=== PATIENT | female | born 1925 | race Asian ===

== ENCOUNTER 2016-08-11 10:03 | Inpatient (IN) | payer OTHER, MEDICAID ==
[2016-08-11] VITALS (14 sets, daily range): BP systolic 85–146; BP diastolic 46–101; PULSE 93–145; RESP 20–38; TEMP 94–98.1; O2SAT 80–97
[~2016-08-11] VITALS: Ht 152.4 cm; Wt 39.9 kg
[~2016-08-11 10:03] MED LIST: LIDOCAINE 1% 10 MG/ML, 20 ML MDV INJ ONE; MIDAZOLAM HCL 5 MG/5 ML VIAL IVP ONE; ROCURONIUM BROMIDE 10 MG/ML (ZEMURON) IV ONE
--- NOTE | 2016-08-11 10:03 | NUR ---
Patient to ER bed 2 to gown for evaluation. Side rails up. Report given to CALVIN ORTIZ .
[2016-08-11] MEDS ORDERED: NS 500 ML IV SCH (10:08)
--- NOTE | 2016-08-11 10:10 | NUR ---
PT BIB EMS FROM SNF C/O FEVER AND ALTERED.PT SAMI SPEAKING ONLY.PT AFEBRILE AT THIS TIME.
--- NOTE | 2016-08-11 10:30 | NUR ---
JOSE Brewster at bedside examining patient.
[2016-08-11 10:40] LABS: HEMATOCRIT 28.5 % (36-48); HEMOGLOBIN 9.4 g/dL (12.0-16.0); MEAN CORPUSCULAR HEMOGLOBIN 29 pg (27-31); MEAN CORPUSCULAR HGB CONC 33 % (32-36); MEAN CORPUSCULAR VOLUME 89 fL (79.0-98.0); PLATELET COUNT (AUTO) 242 K/uL (130-430); RED BLOOD CELL COUNT(AUTO) 3.23 MIL/uL (4.2-6.2); WHITE BLOOD COUNT (AUTO) 6.1 K/uL (4.8-10.8)
[2016-08-11 10:49] LABS: PROTHROMBIN TIME 10.4 SECS (9.5-12.5)
[2016-08-11 11:01] LABS: ATYPICAL LYMPHOCYTES % 0 % (0-0); BAND % (MANUAL) 30 % (0-6); BASOPHILS % (MANUAL) 0 % (0-2); EOSINOPHILS % (MANUAL) 0 % (0-7); LYMPHOCYTES % (MANUAL) 10 % (20-46); MONOCYTES % (MANUAL) 2 % (0-11)
--- NOTE | 2016-08-11 11:11 | NUR ---
CRITICAL LAB RESULT OBTAINED TROPONIN 8.659 MD SAEZ MADE AWARE WELL CALVIN.
[2016-08-11 11:21] LABS: ANION GAP 14 (5-15); CALCIUM 8.5 mg/dL (8.4-11.0); CHLORIDE 105 mmol/L (98-107); CREATININE 2.17 mg/dL (0.55-1.30); GLUCOSE 221 mg/dL (70-99); SODIUM SERUM 141 mmol/L (136-145); UREA NITROGEN, BLOOD 63 mg/dL (8-21)
--- NOTE | 2016-08-11 11:24 | NUR ---
# 16 FR Brooke catheter with use of sterile technique. Immediate return of 10 cc TURBID urine noted. Bedside drainage bag placed below level of bladder. Urine sample collected and sent to lab. Pt tolerated procedure WELL. Patient arrived with brooke in place, changed due to standard of practice prior to admission. Patient unable to toilet self.
[2016-08-11 11:26] LABS: ALANINE AMINOTRANSFERASE 49 U/L (12-78); ALBUMIN 2.5 g/dL (3.4-4.8); ASPARTATE AMINOTRANSFERASE 139 U/L (10-37); TOTAL BILIRUBIN 0.7 mg/dL (0.0-1.0); TOTAL PROTEIN, SERUM 8.1 g/dL (6.4-8.3)
[2016-08-11 11:28] LABS: BILIRUBIN,URINE NEGATIVE (NEGATIVE); BLOOD, URINE 3+ (NEGATIVE); CLARITY/URINE CLOUDY (CLEAR); COLOR,URINE YELLOW (YELLOW); GLUCOSE,URINE NEGATIVE (NEGATIVE); KETONES,URINE NEGATIVE (NEGATIVE); LEUKOCYTE ESTERASE ,URINE TRACE (NEGATIVE); NITRITE, URINE NEGATIVE (NEGATIVE); PROTEIN URINE 1+ (NEGATIVE); UROBILINOGEN,URINE 0.2 (0.2-1.0)
[2016-08-11] MEDS ORDERED: ASPIRIN 300 MG/SUPP.RECT SUPP RC ONE (11:30)
[2016-08-11 11:38] LABS: WBC,URINE 0-3 /HPF (0-3)
[2016-08-11 11:39] LABS: BACTERIA,URINE MODERATE /HPF (None Seen); YEAST,URINE Moderate /HPF (None Seen)
[2016-08-11] MEDS ORDERED: cefTRIAXone 1 GM in D5W 50 ML IV ONE (11:45)
[2016-08-11] MEDS ORDERED: AZITHROMYCIN 500 MG in NS 250 ML IV ONE (11:45)
[2016-08-11] MEDS ORDERED: NS 500 ML IV ONE (11:45)
--- NOTE | 2016-08-11 12:00 | NUR ---
PT MEDICATED TOLERATED WELL.
--- NOTE | 2016-08-11 12:10 | NUR ---
PT PLACED ON FARRAH HUGGER RECTAL TEMP 95.1.
[2016-08-11] MEDS ORDERED: AZITHROMYCIN 500 MG/VIAL (ZITHROMAX) IV ONE ×2 (12:23→12:44)
[2016-08-11] MEDS ORDERED: cefTRIAXone 1 GM VIAL ONE (12:27)
--- NOTE | 2016-08-11 12:30 | NUR ---
PT HYPOTENSIVE 86/50. CONTINUING MONITOR. AWARE.
--- NOTE | 2016-08-11 12:50 | NUR ---
REPEAT TEMP 96.5 RECTAL.
--- NOTE | 2016-08-11 13:30 | NUR ---
Admission Assessment Received pt via gurney from ER. Pt is awake, confused, agitated, speaks Nepalese, unable to verbalize needs, moaning. Pt is on bilateral soft wrist restraints for pulling at oxygen mask and IV lines, no skin breakdown noted, pulses present bilaterally. Respirations are even and rapid as pt is agitated and kicking. AROM on all extremities. Pt is on 7L O2 via simple mask. Vitals: T 94, HR 95, BP 126/101, O2 87%, R 27. Placed pt on bear hugger, but pt keeps kicking off blankets. Skin warm and dry, pt has bony prominences. Sacrum/coccyx noted with some redness, photograph taken and placed in chart, applied foam dressing and repositioned with pillow. IVSL 20G JULIA intact, patent. IVSL 20G LAC intact, patent. Logan catheter in place draining georgiana urine. Heart sounds regular, SR on monitor. Lung sounds diminished d/t pt moaning and unable to follow commands. Bowel sounds present x4 quads. Abdomen soft and nondistended. Peripheral pulses palpable. Reposition pt on pillow, relieve pressure on sacrum/coccyx. Heels elevated with pillow. Warming measures in place. Will continue to monitor.
--- NOTE | 2016-08-11 13:30 | NUR ---
Administered CHG bath and photograph sacrum.
--- NOTE | 2016-08-11 13:45 | NUR ---
Patient Update Pt's granddaughter, Di Coy, at bedside with pt's brother. Per Di, pt "had a fall within the past year" and "has history of hip replacement." When asked about other hx, Di states, "I don't know anything other than she has dementia and alzheimer's. She is up-to-date with vaccinations." Educated pt and family members regarding the need to use restraints, family members expressed understanding for her "to get necessary treatment and get better." Dr. Preston in to see pt and talking with family. Will continue with plan of care.
--- NOTE | 2016-08-11 14:00 | NUR ---
Placed pt in isolation with droplet precautions.
[2016-08-11] MEDS ORDERED: D5NS 1,000 ML IV SCH (14:30)
[2016-08-11] MEDS ORDERED: IPRATROPIUM BROM 0.5 MG/2.5 ML VIAL.NEB (ATROVENT) INH PRN (14:30)
[2016-08-11] MEDS ORDERED: ALBUTEROL SULFATE 0.083% 2.5 MG/3 ML VIAL.NEB INH PRN (14:30)
[2016-08-11] MEDS ORDERED: IPRATROPIUM BROM 0.5 MG/2.5 ML VIAL.NEB (ATROVENT) INH SCH (15:00)
[2016-08-11] MEDS ORDERED: ALBUTEROL SULFATE 0.083% 2.5 MG/3 ML VIAL.NEB INH SCH (15:00)
[2016-08-11] MEDS ORDERED: HYDROCORTISONE SOD SUCC 100 MG/2 ML VIAL IVP ONE (15:15)
[2016-08-11 15:34] LABS: BLOOD GAS PH 7.403 (7.350-7.450)
[2016-08-11 15:35] LABS: ABG TOTAL HEMOGLOBIN 10.1 G/dL (12.0-18.0); BLOOD GAS COHb% 0.1 % (0.5-1.5); BLOOD GAS HHB 13.1 % (0.0-6.0); BLOOD O2Hb% 86.4 % (94.0-97.0)
--- NOTE | 2016-08-11 16:00 | NUR ---
Patient Update Repositioned pt and perform oral suctioning. Pt is resistive to care and continues to kick legs, move arms, grab, and pinch healthcare providers. No injuries noted from bilateral wrist restraints. Pt removed blankets. Temperature improve to 97.4 from 94. Reoriented pt. Bed locked in lowest position. Will continue to monitor.
--- NOTE | 2016-08-11 16:10 | NUR ---
Wound Evaluation: Late note for 08/11/16 secondary to patient care. Wound Consult ordered for low Patrice score. Patient evaluated for a low Patrice score of 13. Patient was arousable, agitated, non-verbal, non-responsive to verbal commands, and received in an ICU [facility] Bed. Patient needs to be turned in bed. 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 Recommend reposition patient side to side only every two hours with pillow support. Elevate, off-load, and float bilateral heels with pillows. Offload pressure areas with pillows for pressure re-distribution. Perform skin care and monitor skin integrity q shift. Use moisture barrier cream on moisture susceptible areas qid and prn for soiling. Place patient on a low air-loss mattress. Will continue to follow as a Patrice. For (bony) Coccygeal area, recommend: Cleanse site with normal saline. Pat dry. Put moisture barrier cream onto site. Cover with Sacral foam dressing. Perform site care daily, and as needed for dressing soiling or dislodgment.
--- NOTE | 2016-08-11 17:00 | NUR ---
Dr. Castillo in to see pt. Will continue with plan of care.
[2016-08-11] MEDS: PIPERACILLIN/TAZO 3.375/DEX-IS 50 ML IV SCH ×2 (17:07→17:25)
[2016-08-11] MEDS: D5/0.45 NS 1,000 ML IV SCH ×2 (17:25→19:54)
[2016-08-11] MEDS ORDERED: HYDROCORTISONE SOD SUCC 100 MG/2 ML VIAL IVP SCH (18:00)
--- NOTE | 2016-08-11 18:00 | NUR ---
No change in pt's mental status. Heart rate and rhythm gradually increase to tachycardia.
--- NOTE | 2016-08-11 18:30 | NUR ---
Dr. Healy in to see pt.
--- NOTE | 2016-08-11 19:30 | NUR ---
Endorsement Endorsed plan of care to My RN via SBAR method. Belongings list complete. Assessments done.
--- NOTE | 2016-08-11 19:40 | NUR ---
PM ASSESSMENT PT IN BED, OPEN EYES, RESTLESS. PT ON SIMPLE MASK 7 L O2. O2 SAT 86%. RR 24. SINUS TACHYCARDIA ON AUTOMATIC COIN MACHINE MECHANIC. PERIPHERAL IV 20G ON LEFT AC AND PERIPHERAL IV 20 ON RIGHT UPPER ARM DRESSING CLEAN DRY AND INTACT. NO SIGNS OF INFECTION AND INFILTRATION. D5/0.45 NS INFUSING @ 40CC/HR. AMES CATHETER IN PLACE INTACT. PT ON BILATERAL SOFT WRIST RESTRAINTS. GOOD SKIN AND CIRCULATION NOTED ON ALL EXTREMITIES. CALL LIGHT WITHIN REACH . BED AT LOWEST POSITION. CONTINUE TO MONITOR.
[2016-08-11] MEDS: ALBUTEROL SULFATE 0.083% 2.5 MG/3 ML VIAL.NEB INH SCH (19:48)
[2016-08-11] MEDS: IPRATROPIUM BROM 0.5 MG/2.5 ML VIAL.NEB (ATROVENT) INH SCH (19:48)
[2016-08-11] MEDS ORDERED: SUCCINYLCHOLINE CHLORIDE 20 MG/ML(QUELICIN) ONE (20:00)
[2016-08-11] MEDS ORDERED: ETOMIDATE 20 MG/ 10 ML VIAL (AMIDATE) ONE (20:00)
--- NOTE | 2016-08-11 20:00 | NUR ---
GAVE PT CHG BATH. PERINEAL CARE AND SKIN CARE DONE. LINEN CHANGED.
--- NOTE | 2016-08-11 20:30 | NUR ---
RESPIRATORY SETTING RESPIRATORY THERAPIST AT PT BEDSIDE TO CHANGE SIMPLE MASK 7 L O2 TO VENTI MASK 50%
[2016-08-11] MEDS: CARVEDILOL 3.125 MG TABLET (COREG) PO SCH (21:00)
[2016-08-11] MEDS: HALOPERIDOL LACTATE 5 MG/ML VIAL IVP PRN (21:12)
--- NOTE | 2016-08-11 21:50 | NUR ---
RESPIRATORY SETTING RESPIRATORY THERAPIST AT PT'S BEDSIDE TO CHANGE TO NON-REBREATHER MASK 100%
[2016-08-11] MEDS ORDERED: METOPROLOL TARTRATE 5 MG/5 ML VIAL ONE (21:53)
[2016-08-11] MEDS ORDERED: METOPROLOL TARTRATE 5 MG/5 ML VIAL IVP ONE (22:00)
[2016-08-11] MEDS: HYDROCORTISONE SOD SUCC 100 MG/2 ML VIAL IVP SCH (22:04)
--- NOTE | 2016-08-11 23:00 | NUR ---
ABG RESPIRATORY THERAPIST AT PT'S BEDSIDE TO DRAW ABG
--- NOTE | 2016-08-11 23:25 | NUR ---
ABG RESULTS CHARGE NURSECARLYLE CALLS DR PEREZ REGARDING PT'S ABG RESULTS AND ELEVATED HR. DR PEREZ ORDERS TO INTUBATE THE PATIENT
--- NOTE | 2016-08-11 23:39 | NUR ---
INTUBATION DR YOST CAME TO INTUBATE THE PT. 20MG ETOMIDATE AND 100MG SUCCINYLCHOLINE IVP GIVEN. INTUBATED WITH ETT # 7, CO2 DETECTOR COLOR CHANGE IMMEDIATELY. ETT AT LIPLINE 19 PLACED ON THE VENT. VENT SETTING AC 16 VT 400 FIO2 100% PEEP 5. PT O2 SAT 100%. PT'S VITAL SIGNS STABLE. ABG WILL BE DONE IN HALF HOUR
--- NOTE | 2016-08-11 23:46 | NUR ---
PORTABLE CHEST X-RAY TAKEN BY ORAL COMMUNICATION INSTRUCTOR. DR YOST STATES THAT ETT IS IN THE RIGHT POSITION
[2016-08-11 23:58] LABS: BLOOD GAS PH 7.335 (7.350-7.450)
[2016-08-11 23:59] LABS: ABG TOTAL HEMOGLOBIN 10.4 G/dL (12.0-18.0); BLOOD GAS BASE EXCESS -6.4 mmol/L (-3.0-3.0); BLOOD GAS HHB 7.9 % (0.0-6.0)
[2016-08-12] VITALS (39 sets, daily range): BP systolic 70–141; BP diastolic 35–89; PULSE 91–150; RESP 17–36; TEMP 97.4–100.4; O2SAT 91–100; Ht 152.4 cm; Wt 39.9 kg
[2016-08-12] MEDS: PIPERACILLIN/TAZO 3.375/DEX-IS 50 ML IV SCH ×4 (00:28→18:15)
[2016-08-12] MEDS: ALBUTEROL SULFATE 0.083% 2.5 MG/3 ML VIAL.NEB INH SCH ×4 (00:36→19:38)
[2016-08-12] MEDS: IPRATROPIUM BROM 0.5 MG/2.5 ML VIAL.NEB (ATROVENT) INH SCH ×4 (00:36→19:38)
--- NOTE | 2016-08-12 00:40 | NUR ---
FIP2 TITRATION RESPIRATORY THERAPIST TITRATES FIO2 DOWN TO 80% Addendum: 08/12/16 at 0044 by Valorie Landaverde RN FIO2 TITRATION RESPIRATORY THERAPIST TITRATES FIO2 DOWN TO 80%. PT'S O2 SAT 100%
[2016-08-12] MEDS: LORazepam 2 MG/ML VIAL IVP PRN ×4 (01:01→16:39)
[2016-08-12] MEDS: MORPHINE 2 MG/ML INJ. SYRINGE IVP PRN (01:06)
[2016-08-12 01:08] LABS: BLOOD GAS PH 7.353 (7.350-7.450)
[2016-08-12 01:09] LABS: ABG TOTAL HEMOGLOBIN 9.9 G/dL (12.0-18.0); BLOOD GAS BASE EXCESS -6.5 mmol/L (-3.0-3.0); BLOOD GAS COHb% 0.3 % (0.5-1.5); BLOOD O2Hb% 97.5 % (94.0-97.0)
--- NOTE | 2016-08-12 05:30 | NUR ---
LOW URINE OUTPUT CALLED DR PEREZ REGARDING PT'S LOW URINE OUTPUT. NEW ORDERS RECEIVED
[2016-08-12] MEDS: D5/0.45 NS 1,000 ML IV SCH ×2 (05:45→16:39)
[2016-08-12] MEDS ORDERED: NS 250 ML IV ONE ×3 (05:45→15:30)
[2016-08-12 06:37] LABS: BASOPHILS % (AUTO) 0.1 % (0.0-2.0); HEMATOCRIT 27.5 % (36-48); HEMOGLOBIN 9.1 g/dL (12.0-16.0); LYMPHOCYTES # (AUTO) 0.2 K/uL (1.0-5.5); LYMPHOCYTES % (AUTO) 1.4 % (20.5-51.5); MEAN CORPUSCULAR HEMOGLOBIN 29 pg (27-31); MEAN CORPUSCULAR HGB CONC 33 % (32-36); MEAN CORPUSCULAR VOLUME 89 fL (79.0-98.0); MONOCYTES # (AUTO) 0.2 K/uL (0.0-1.0); MONOCYTES % (AUTO) 1.5 % (1.7-9.3); PLATELET COUNT (AUTO) 222 K/uL (130-430); RED CELL DISTRIBUTION WIDTH 13.9 % (9.0-15.0)
[2016-08-12 07:02] LABS: WHITE BLOOD COUNT (AUTO) 11.4 K/uL (4.8-10.8)
[2016-08-12 07:22] LABS: ANION GAP 9 (5-15); CHLORIDE 107 mmol/L (98-107); POTASSIUM 3.7 mmol/L (3.5-5.1); SODIUM SERUM 139 mmol/L (136-145)
[2016-08-12 07:23] LABS: ALANINE AMINOTRANSFERASE 51 U/L (12-78); ASPARTATE AMINOTRANSFERASE 118 U/L (10-37); CREATININE 1.86 mg/dL (0.55-1.30); GLUCOSE 241 mg/dL (70-99); TOTAL BILIRUBIN 0.5 mg/dL (0.0-1.0); TOTAL PROTEIN, SERUM 7.1 g/dL (6.4-8.3); UREA NITROGEN, BLOOD 59 mg/dL (8-21)
[2016-08-12] MEDS: HYDROCORTISONE SOD SUCC 100 MG/2 ML VIAL IVP SCH ×3 (07:23→21:25)
[2016-08-12 07:26] LABS: THYROID STIMULATING HORMONE 1.52 uIu/mL (0.34-4.82)
[2016-08-12 07:39] LABS: CHOLESTEROL 132 mg/dL (<200); HDL CHOLESTEROL 33 mg/dL (>55); LDL CHOLESTEROL 59 mg/dL (<100); TRIGLYCERIDES 111 mg/dL (30-150)
--- NOTE | 2016-08-12 07:44 | NUR ---
gave shift report to oncoming nurse
--- NOTE | 2016-08-12 08:00 | NUR ---
Pt in ICU # 1 . Eyes closed, does not open on verbal at this time. Does not folllow caommands. Able to move all extremities. Very restess. Tries to swing legs over side. Repositioned. Pillow support used. Skin warm and dry, no edema. Cardiac monoitor shows ST, no ectopy. IV patent.in right upper arm. SL in left wrist area. Remains orally intubated. Tolerating vent settings well.Tachypneic at times. Lungs with ronchi throughout. Abdomen soft,flat.Hypoactive bowel sounds Logan catheter in place, draining small amt cloudy yellow urine.
--- NOTE | 2016-08-12 08:15 | NUR ---
Seen by Dr Preston
--- NOTE | 2016-08-12 08:15 | NUR ---
RT NOTE FIO2 DECREASED TO 50% PER ABG RESULT, RN INFORMED ABOUT CHANGES, NO RESP DISTRESS NTD
--- NOTE | 2016-08-12 08:20 | NUR ---
Medicated with Ativan 1 mg ivp for agitation,tachycardia and tachypnea.
[2016-08-12 08:27] LABS: BLOOD GAS PH 7.446 (7.350-7.450)
[2016-08-12 08:28] LABS: ABG TOTAL HEMOGLOBIN 8.3 G/dL (12.0-18.0); BLOOD GAS BASE EXCESS -2.8 mmol/L (-3.0-3.0); BLOOD GAS COHb% 0.3 % (0.5-1.5); BLOOD GAS HHB 1.3 % (0.0-6.0)
--- NOTE | 2016-08-12 08:38 | NUR ---
Nutrition Update Patrice Scale 15 noted. Pt admitted for septic shock. Diet: NPO BMI: 17.4 kg/m2 RD to follow per nutrition care standards.
--- NOTE | 2016-08-12 08:45 | NUR ---
Seen by Dr Castillo.
[2016-08-12] MEDS: ASPIRIN 81 MG TAB.CHEW PO SCH (09:00)
[2016-08-12] MEDS: CARVEDILOL 3.125 MG TABLET (COREG) PO SCH ×2 (09:00→21:00)
--- NOTE | 2016-08-12 09:00 | NUR ---
Fluid bolus NS 250ml given for low BP=70/35 HR 123 RR 25
--- NOTE | 2016-08-12 10:00 | NUR ---
Vital signs improved. Pt calmer at this moment. Repositioned
--- NOTE | 2016-08-12 11:15 | NUR ---
Talked to granddaughter Di Mcdonald [phone] on telephone. Condition update given and questions answered.
[2016-08-12] MEDS: ENOXAPARIN SODIUM 30 MG/0.3 ML SYRINGE SUBCUT SCH (11:50)
[2016-08-12] MEDS: PANTOPRAZOLE SODIUM 40 MG/VIAL (PROTONIX) IVP SCH (11:50)
--- NOTE | 2016-08-12 12:00 | NUR ---
Continues restless. Repositioned for comfort.
--- NOTE | 2016-08-12 13:15 | NUR ---
Continues very restless. Medicated with Ativan 1 mg IVP slowly.
--- NOTE | 2016-08-12 14:00 | NUR ---
Calms slightly post Ativan. Reoriented, repositioned for comfort.
[2016-08-12] MEDS: HALOPERIDOL LACTATE 5 MG/ML VIAL IVP PRN (14:25)
--- NOTE | 2016-08-12 14:25 | NUR ---
Medicated with Haldol, 0.5 mg IVP for agitation/restlessness.
--- NOTE | 2016-08-12 16:00 | NUR ---
Seen by Dr Healy
--- NOTE | 2016-08-12 16:30 | NUR ---
Repositioned,partial bath , linen change OGT inserted for PO med administration Continues restless most of the time
--- NOTE | 2016-08-12 16:40 | NUR ---
Medicated with Ativan i mg IVP for restlessness
--- NOTE | 2016-08-12 18:00 | NUR ---
Resting quietly, Basically no change since AM assessment. Cont with current level of care
--- NOTE | 2016-08-12 19:45 | NUR ---
PM ASSESS PT AWAKE, EYES OPEN, A/OX1. ST ON THE MONITOR. IV SITE ON LT WRIST 20G SL AND JULIA 20G, INTACT AND PATENT, INFUSING D5 1/2NS@75ML/HR. LUNG SOUNDS RHONCHI BILAT UPPER LOBES AND DIMINISHED BASES, INTUBATED , SETTINGS AC16/ TV400/ FIO2 50%/ PEEP5. NGT PLACEMENT CHECKED, 0ML RESIDUALS, CLAMPED. AMES CATHETER DRAINING TO GRAVITY W/ YELLOW CLOUDY URINE. CALL LIGHT W/IN REACH, SAFETY PRECAUTIONS IN PLACE, WILL CONTINUE TO MONITOR.
[2016-08-12] MEDS: LACTOBACILLUS RHAMNOSUS GG 1 CAP CAPSULE PO SCH (21:24)
[2016-08-12] MEDS: OSELTAMIVIR PHOSPHATE 75 MG CAPSULE PO SCH (21:24)
--- NOTE | 2016-08-12 21:29 | NUR ---
MED/ COREG DUE MED GIVEN, PT TOLERATING WELL. COREG HELD, LOW BP. CALL LIGHT W/IN REACH, SAFETY PRECAUTIONS IN PLACE, WILL CONTINUE TO MONITOR.
[2016-08-13] VITALS (36 sets, daily range): BP systolic 85–138; BP diastolic 42–77; PULSE 69–118; RESP 16–36; TEMP 97–97.9; O2SAT 94–100
[2016-08-13] MEDS: ALBUTEROL SULFATE 0.083% 2.5 MG/3 ML VIAL.NEB INH SCH ×4 (00:04→19:53)
[2016-08-13] MEDS: IPRATROPIUM BROM 0.5 MG/2.5 ML VIAL.NEB (ATROVENT) INH SCH ×4 (00:04→19:53)
[2016-08-13] MEDS: PIPERACILLIN/TAZO 3.375/DEX-IS 50 ML IV SCH ×5 (00:34→23:30)
--- NOTE | 2016-08-13 00:35 | NUR ---
ABX DUE ABX GIVEN, PT TOLERATING WELL. CALL LIGHT W/IN REACH, SAFETY PRECAUTIONS IN PLACE, WILL CONTINUE TO MONITOR.
[2016-08-13] MEDS: HYDROCORTISONE SOD SUCC 100 MG/2 ML VIAL IVP SCH ×3 (05:16→21:39)
--- NOTE | 2016-08-13 05:22 | NUR ---
ABX/ MED DUE ABX AND MED GIVEN, PT TOLERATING WELL. CALL LIGHT W/IN REACH, SAFETY PRECAUTIONS IN PLACE, WILL CONTINUE TO MONITOR.
[2016-08-13 06:43] LABS: BASOPHILS % (AUTO) 0.1 % (0.0-2.0); EOSINOPHILS % (AUTO) 0.1 % (0.0-4.0); HEMATOCRIT 23.2 % (36-48); HEMOGLOBIN 7.6 g/dL (12.0-16.0); LYMPHOCYTES # (AUTO) 0.2 K/uL (1.0-5.5); LYMPHOCYTES % (AUTO) 2.6 % (20.5-51.5); MEAN CORPUSCULAR HEMOGLOBIN 29 pg (27-31); MEAN CORPUSCULAR HGB CONC 33 % (32-36); MEAN CORPUSCULAR VOLUME 88 fL (79.0-98.0); MONOCYTES # (AUTO) 0.2 K/uL (0.0-1.0); MONOCYTES % (AUTO) 2.2 % (1.7-9.3); NEUTROPHILS # (AUTO) 8.6 K/uL (1.8-7.7); PLATELET COUNT (AUTO) 198 K/uL (130-430); RED BLOOD CELL COUNT(AUTO) 2.62 MIL/uL (4.2-6.2); RED CELL DISTRIBUTION WIDTH 14.2 % (9.0-15.0)
--- NOTE | 2016-08-13 07:25 | NUR ---
Pt very agitated, wriggling in bed with restraints on and RR 40/min. Sats 97%, HR 100. Medicated with haldol 0.5 mg IVP. Will monitor for effect.
--- NOTE | 2016-08-13 07:27 | NUR ---
CLOSING ALL NEEDS MET. ENDORSED CARE TO NURSE GUERA ORTIZ.
[2016-08-13] MEDS: HALOPERIDOL LACTATE 5 MG/ML VIAL IVP PRN (07:35)
--- NOTE | 2016-08-13 07:45 | NUR ---
Pt remains agitated with RR 30's. VSS. Medicated with Ativan IVP as ordered. Will monitor for effect.
[2016-08-13 07:48] LABS: BLOOD GAS PH 7.419 (7.350-7.450)
[2016-08-13 07:49] LABS: ABG TOTAL HEMOGLOBIN 7.5 G/dL (12.0-18.0); BLOOD GAS BASE EXCESS -6.1 mmol/L (-3.0-3.0); BLOOD GAS COHb% 0.3 % (0.5-1.5); BLOOD GAS HHB 3.2 % (0.0-6.0); BLOOD O2Hb% 95.7 % (94.0-97.0)
[2016-08-13 07:50] LABS: ANION GAP 11 (5-15); CALCIUM 7.6 mg/dL (8.4-11.0); CHLORIDE 108 mmol/L (98-107); CREATININE 1.79 mg/dL (0.55-1.30); GLUCOSE 264 mg/dL (70-99); SODIUM SERUM 141 mmol/L (136-145); UREA NITROGEN, BLOOD 53 mg/dL (8-21)
[2016-08-13] MEDS: LORazepam 2 MG/ML VIAL IVP PRN ×3 (07:51→19:07)
[2016-08-13 08:02] LABS: ALANINE AMINOTRANSFERASE 49 U/L (12-78); ALBUMIN 1.6 g/dL (3.4-4.8); ASPARTATE AMINOTRANSFERASE 98 U/L (10-37); TOTAL BILIRUBIN 0.4 mg/dL (0.0-1.0)
--- NOTE | 2016-08-13 08:21 | NUR ---
RT NOTE FIO2 DECREASED TO 40% PER TITRATING ORDER
[2016-08-13 08:35] LABS: POTASSIUM 2.8 mmol/L (3.5-5.1)
[2016-08-13] MEDS: PANTOPRAZOLE SODIUM 40 MG/VIAL (PROTONIX) IVP SCH (08:35)
[2016-08-13] MEDS: CARVEDILOL 3.125 MG TABLET (COREG) PO SCH ×2 (08:36→20:41)
[2016-08-13] MEDS: ASPIRIN 81 MG TAB.CHEW PO SCH (08:36)
[2016-08-13] MEDS: LACTOBACILLUS RHAMNOSUS GG 1 CAP CAPSULE PO SCH ×2 (08:37→20:40)
[2016-08-13] MEDS: OSELTAMIVIR PHOSPHATE 75 MG CAPSULE PO SCH ×2 (08:37→20:41)
[2016-08-13] MEDS: ENOXAPARIN SODIUM 30 MG/0.3 ML SYRINGE SUBCUT SCH (08:39)
[2016-08-13] MEDS: D5/0.45 NS 1,000 ML IV SCH ×2 (08:41→17:00)
[2016-08-13] MEDS ORDERED: POTASSIUM CHLORIDE 40 MEQ in NS 250 ML IV SCH (08:50)
[2016-08-13] MEDS ORDERED: FUROSEMIDE 20 MG/2 ML VIAL IVP ONE (09:45)
--- NOTE | 2016-08-13 09:50 | NUR ---
Dr. Healy in to see pt. Orders left.
[2016-08-13] MEDS: POTASSIUM CHLORIDE 20 MEQ TAB.PRT.SR PO SCH ×2 (12:36→20:40)
--- NOTE | 2016-08-13 14:05 | NUR ---
Wound Re-Evaluation: Wound Consult ordered for low Patrice score. Assessment provided by staff nurse. Patient re-evaluated for a low Patrice score of 13. Patient was arousable, non-verbal, non-responsive to verbal commands, and received in an ICU [facility] Bed. Patient needs to be turned in bed. Skin is poor; Sacral area has erythema from IAD; Inferior Coccygeal area has scar tissue with dark discoloration. Recommend reposition patient side to side only every two hours with pillow support. Elevate, off-load, and float bilateral heels with pillows. Offload pressure areas with pillows for pressure re-distribution. Perform skin care and monitor skin integrity q shift. Use moisture barrier cream on moisture susceptible areas qid and prn for soiling. Place patient on a low air-loss mattress. Will continue to follow as a Patrice. For (bony) Coccygeal area, recommend continue: Cleanse site with normal saline. Pat dry. Put moisture barrier cream onto site. Cover with Sacral foam dressing. Perform site care daily, and as needed for dressing soiling or dislodgment.
--- NOTE | 2016-08-13 14:35 | NUR ---
Poor urine output from brooke since lasix given earlier. Call out to Dr. Healy. Repositioned in bed with pillow support.
--- NOTE | 2016-08-13 14:48 | NUR ---
Spoke to Dr. Healy regarding low urine output. Orders left. NS bolus given.
[2016-08-13] MEDS ORDERED: NACL 0.9% 1,000 ML IV SCH (15:00)
[2016-08-13] MEDS ORDERED: NS 250 ML IV ONE (15:00)
--- NOTE | 2016-08-13 16:30 | NUR ---
Urine output improved with NS bolus. Urine clear yellow. Pt repositioned in bed. Extremities contracted but pt ablet o move arms. Mittens and restraints remain in use to prevent removing equipment. Will continue to monitor. Sedation helpful when pt agitated.
--- NOTE | 2016-08-13 19:30 | NUR ---
Report given to oncoming nurse.
--- NOTE | 2016-08-13 19:45 | NUR ---
PM ASSESS PT AWAKE, EYES OPEN, A/OX1. SR ON THE MONITOR. IV SITE ON RT WRIST 20G SL AND JULIA 20G, INTACT AND PATENT, INFUSING D5 1/2NS@75ML/HR. LUNG SOUNDS BILAT CRACKLES UPPER LOBES AND DIMINISHED BASES, INTUBATED , SETTINGS AC16/ TV400/ FIO2 50%/ PEEP5. OGT PLACEMENT CHECKED, 0ML RESIDUALS, CLAMPED. AMES CATHETER DRAINING TO GRAVITY W/ YELLOW CLOUDY URINE. CALL LIGHT W/IN REACH, SAFETY PRECAUTIONS IN PLACE, WILL CONTINUE TO MONITOR.
--- NOTE | 2016-08-13 20:43 | NUR ---
MED/ COREG DUE MED GIVEN, PT TOLERATING WELL. COREG HELD, LOW BP. CALL LIGHT W/IN REACH, SAFETY PRECAUTIONS IN PLACE, WILL CONTINUE TO MONITOR.
--- NOTE | 2016-08-13 21:40 | NUR ---
MED DUE MED GIVEN, PT TOLERATING WELL. CALL LIGHT W/IN REACH, SAFETY PRECAUTIONS IN PLACE, WILL CONTINUE TO MONITOR.
--- NOTE | 2016-08-13 21:57 | NUR ---
TF STARTED DIABETISOURCE AC@20ML/HR STARTED, PT TOLERATING WELL, WILL CONTINUE TO MONITOR.
--- NOTE | 2016-08-13 23:31 | NUR ---
ABX DUE ABX GIVEN, PT TOLERATING WELL. CALL LIGHT W/IN REACH, SAFETY PRECAUTIONS IN PLACE, WILL CONTINUE TO MONITOR.
[2016-08-14] VITALS (37 sets, daily range): BP systolic 90–170; BP diastolic 46–94; PULSE 78–122; RESP 13–41; TEMP 97.2–97.8; O2SAT 90–97
[2016-08-14] MEDS: ALBUTEROL SULFATE 0.083% 2.5 MG/3 ML VIAL.NEB INH SCH ×4 (01:12→20:08)
[2016-08-14] MEDS: IPRATROPIUM BROM 0.5 MG/2.5 ML VIAL.NEB (ATROVENT) INH SCH ×4 (01:13→20:08)
--- NOTE | 2016-08-14 05:00 | NUR ---
RT NOTES PT REMAIN ON VENT THROUGH OUT SHIFT WITH CURRENT SETTINGS CHARTED. PT MAYANK VENT WELL. MED NEB TX WAS GIVEN INLINE WITHOUT ADVERSE REACTION NOTED. VENT AND APNEA ALARMS SET AND FUNCTIONING. SXN PRN FOR SMALL AMOUNT OF THICK PALE YELLOW SECRETIONS. NO RESP DISTRESS NOTED. AMBU BAG IS AT BEDSIDE.
[2016-08-14] MEDS: PIPERACILLIN/TAZO 3.375/DEX-IS 50 ML IV SCH ×4 (05:23→23:41)
[2016-08-14] MEDS: HYDROCORTISONE SOD SUCC 100 MG/2 ML VIAL IVP SCH ×2 (05:24→20:08)
[2016-08-14] MEDS: D5/0.45 NS 1,000 ML IV SCH ×2 (05:24→20:08)
--- NOTE | 2016-08-14 05:25 | NUR ---
ABX/ MED DUE ABX AND MED GIVEN, PT TOLERATING WELL. CALL LIGHT W/IN REACH, SAFETY PRECAUTIONS IN PLACE, WILL CONTINUE TO MONITOR.
[2016-08-14 06:41] LABS: BASOPHILS % (AUTO) 0.1 % (0.0-2.0); EOSINOPHILS % (AUTO) 0.2 % (0.0-4.0); HEMATOCRIT 26.1 % (36-48); HEMOGLOBIN 8.6 g/dL (12.0-16.0); LYMPHOCYTES # (AUTO) 0.3 K/uL (1.0-5.5); LYMPHOCYTES % (AUTO) 3.8 % (20.5-51.5); MEAN CORPUSCULAR HEMOGLOBIN 29 pg (27-31); MEAN CORPUSCULAR HGB CONC 33 % (32-36); MEAN CORPUSCULAR VOLUME 88 fL (79.0-98.0); MONOCYTES # (AUTO) 0.2 K/uL (0.0-1.0); MONOCYTES % (AUTO) 2.7 % (1.7-9.3); NEUTROPHILS # (AUTO) 8.7 K/uL (1.8-7.7); NEUTROPHILS % (AUTO) 93.2 % (40.0-70.0); PLATELET COUNT (AUTO) 203 K/uL (130-430); RED BLOOD CELL COUNT(AUTO) 2.98 MIL/uL (4.2-6.2); RED CELL DISTRIBUTION WIDTH 14.6 % (9.0-15.0); WHITE BLOOD COUNT (AUTO) 9.2 K/uL (4.8-10.8)
[2016-08-14 07:18] LABS: ANION GAP 12 (5-15); CALCIUM 7.8 mg/dL (8.4-11.0); CHLORIDE 107 mmol/L (98-107); CREATININE 1.75 mg/dL (0.55-1.30); GLUCOSE 217 mg/dL (70-99); POTASSIUM 3.1 mmol/L (3.5-5.1); SODIUM SERUM 141 mmol/L (136-145); UREA NITROGEN, BLOOD 45 mg/dL (8-21)
[2016-08-14 07:31] LABS: ALANINE AMINOTRANSFERASE 41 U/L (12-78); ALBUMIN 1.5 g/dL (3.4-4.8); ASPARTATE AMINOTRANSFERASE 71 U/L (10-37); TOTAL BILIRUBIN 0.4 mg/dL (0.0-1.0); TOTAL PROTEIN, SERUM 6.1 g/dL (6.4-8.3)
--- NOTE | 2016-08-14 07:44 | NUR ---
CLOSING ALL NEEDS MET. ENDORSED CARE TO NURSE BRAD ORTIZ. Addendum: 08/14/16 at 6444 by Dora Porter RN CORRECTION: ENDORSED CARE TO NURSE HAILE ORTIZ.
--- NOTE | 2016-08-14 07:50 | NUR ---
DR CHÁVEZ IN THE ROOM. UPDATED OF STATUS AND LAB RESULTS. NEW ORDERS RECEIVE.
--- NOTE | 2016-08-14 08:00 | NUR ---
INITIAL SHIFT ASSESSMENT DONE (SEE ASSESSMENT PART). SLEEPING BUT EASILY AROUSABLE. DOES NOT FOLLOW COMMAND BUT EYES ARE TRACKING. NO SIGNS OF PAIN. ON VENTILATOR, TOLERATING CURRENT SETTINGS WELL. O2 SAT 97-98%. SR ON MONITOR. SBP IN 100'S-120'S. NO ECTOPY NOTED. HOB ELEVATED. ON TF, TOLERATING FAIRLY. RESIDUALS OF 50 ML. ON BILATERAL SOFT WRIST RESTRAINTS. UPDATED OF PLAN OF CARE. WILL CONTINUE TO MONITOR.
[2016-08-14 08:32] LABS: BLOOD GAS BASE EXCESS -4.8 mmol/L (-3.0-3.0); BLOOD GAS PH 7.467 (7.350-7.450)
[2016-08-14 08:33] LABS: ABG TOTAL HEMOGLOBIN 9.1 G/dL (12.0-18.0); BLOOD GAS COHb% 0.1 % (0.5-1.5); BLOOD GAS HHB 1.6 % (0.0-6.0); BLOOD O2Hb% 97.6 % (94.0-97.0)
--- NOTE | 2016-08-14 08:55 | NUR ---
DR PEREZ IN THE ROOM. UPDATED OF STATUS. NEW ORDERS RECEIVE.
[2016-08-14] MEDS: LACTOBACILLUS RHAMNOSUS GG 1 CAP CAPSULE PO SCH ×2 (09:23→20:08)
[2016-08-14] MEDS: ENOXAPARIN SODIUM 30 MG/0.3 ML SYRINGE SUBCUT SCH (09:23)
[2016-08-14] MEDS: OSELTAMIVIR PHOSPHATE 75 MG CAPSULE PO SCH ×2 (09:23→20:08)
[2016-08-14] MEDS: PANTOPRAZOLE SODIUM 40 MG/VIAL (PROTONIX) IVP SCH (09:23)
[2016-08-14] MEDS: POTASSIUM CHLORIDE 20 MEQ TAB.PRT.SR PO SCH ×2 (09:23→20:08)
[2016-08-14] MEDS: ASPIRIN 81 MG TAB.CHEW PO SCH (09:23)
[2016-08-14] MEDS: CARVEDILOL 3.125 MG TABLET (COREG) PO SCH ×2 (09:24→22:05)
--- NOTE | 2016-08-14 09:24 | NUR ---
RT NOTES FIO2 TO 40% PER DR PEREZ ORDER
--- NOTE | 2016-08-14 10:00 | NUR ---
RESTING IN BED. NO SIGNS OF PAIN. TOLERATING VENTILATOR WELL. O2 SAT 94-96%. ST ON MONITOR. SBP IN 110'S-140'S. NO ECTOPY NOTED. HOB ELEVATED. WILL CONTINUE TO MONITOR.
--- NOTE | 2016-08-14 12:00 | NUR ---
REASSESSMENT DONE. NEURO STATUS UNCHANGED. NO SIGNS OF PAIN. TOLERATING CURRENT VENTILATOR SETTINGS WELL. O2 SAT 95-97%. SR ON MONITOR. SBP IN 110'S-120'S. NO ECTOPY NOTED. TOLERATING TUBE FEEDING WELL. NO RESIDUALS NOTED. TF INCREASE TO 30 ML/HR. HOB ELEVATED. UPDATED OF PLAN OF CARE. WILL CONTINUE TO MONITOR.
--- NOTE | 2016-08-14 12:22 | NUR ---
Nutrition F/U Admitting Diagnosis Septic shock, acute AK, respiratory failure, aspiration pneumonia, ARF Past Medical History Alzheimer's dementia, HTN per MD notes Pertinent Medications protonix IV, morphine, lopressor, solu-cortef, piperacillin/tazobactam IV, D5%/NaCl IV, k-dur, culturelle Current Diet Order Diabetisource AC at 20 ml/hr, titrate to 40 ml/hr, Free Water Flush: 150 ML via OGT x1 day Height (Feet) 5 feet Height (Inches) 0.00 inches Weight (Pounds) 88 pounds (admission) Bedscale wt: 83 lb, 38 kg (08/12/16); 90 lb, 41 kg (08/14/16) -- unsure of reliability Weight (Calculated Kilograms) 39.638356 kilograms Patient Weight 39.916 kg Body Mass Index 17.18 kg/m2 (underweight, at risk for malnutrition) [place]/Adjusted Body Weight IBW: 100 lb, 46 kg. 87% of IBW Estimated Needs 8221-6779 kcal/day (30-35 kcal/kg IBW for sepsis, wt gain promotion) Grams of Protein per Day 69-92 gm/day (1.5-2 gm/kg IBW for sepsis, wt gain promotion) Fluid Intake Goal 1.4-1.6 L/day (1 ml/kcal/day for geriatric maintenance) Pertinent Labs BG 217 H, BUN 45 H, CRE 1.75 H, ALB 1.5 L, Troponin 3.628 H, WBC 9.2 WNL (improved), ALB 1.5 L, Hgb 8.6 L, Hct 26.1 L 08/13/16: BNP 771 H 08/12/16: HDL cholesterol 33 L 08/11/16: Lactic acid 2.6 H Other Subjective Data Nutrition Consult (Low Patrice Score) 08/13/16 1733 Pt seen +intubated, +vent, w/ no nutrition support infusing, so far, 268 ml infused, providing 322 kcal. Physical assessment: pt is confused/disoriented, and continues to appear to have sunken temporal regions and thin upper and lower extremities w/ possible muscle breakdown Home diet/supplement: unknown diet, Ensure 4 oz by mouth w/ meals; pt is from [facility] Food allergies: unknown GI integrity: last BM x3 08/12/16; per RN, pt had BM x1 during shift production associate last night and 50 ml residual this morning Skin integrity: Patrice scale of 15; per Product Craftsman note 08/13/16: skin is poor; Skin is poor; Sacral area has erythema from IAD; Inferior Coccygeal area has scar tissue with dark discoloration. Plans/procedures: per RN, titrating pt's oxygen and TF regimen Current diet is appropriate and adequate. Pt is not appropriate for nutrition education. Problem, Etiology, Signs/Symptoms Increased nutritional needs related to metabolic demands and risk for malnutrition as evidenced by elevated WBC and lactic acid draw, BMI: 17.4 kg/m2, and 87% of IBW. *WBC now WNL Expected Outcomes or Goals - Monitor provision of nutrition support, appetite, and PO intakes w/ goal of pt meeting at least 50% of estimated nutritional needs, labs trending WNL, normal GI function, and skin integrity/weight maintenance Dietitian Recommendations * Recommend continuing Diabetisource AC at 20 ml/hr, titrate to 40 ml/hr, Free Water Flush: 150 ML via OGT per MD Provides: 1152 kcal/day, 58 gm protein/day, and 935 ml free water/day Meets: 84% of lower end of estimated caloric and protein needs Follow Up Moderate Risk: F/U in 3-5 days
--- NOTE | 2016-08-14 13:30 | NUR ---
FAMILY MEMBERS ARE IN THE ROOM. UPDATED OF STATUS AND PLAN OF CARE.
--- NOTE | 2016-08-14 14:00 | NUR ---
RESTING IN BED NO SIGNS OF PAIN. TOLERATING VENTILATOR WELL. O2 SAT 93-96%. SR ON MONITOR. SBP IN 120'S-150'S. NO ECTOPY NOTED. HOB ELEVATED. WILL CONTINUE TO MONITOR.
--- NOTE | 2016-08-14 16:00 | NUR ---
REASSESSMENT DONE. NEURO STATUS STILL THE SAME. NO SIGNS OF PAIN. TOLERATING CURRENT VENTILATOR SETTINGS WELL. O2 SAT 91-96%. SR ON MONITOR. SBP IN 120'S-150. NO ECTOPY NOTED. TOLERATING TUBE FEEDING WELL. RESIDUALS OF 20 ML ONLY. TF INCREASE TO 40 ML/HR. HOB ELEVATED. UPDATED OF PLAN OF CARE. WILL CONTINUE TO MONITOR.
--- NOTE | 2016-08-14 17:10 | NUR ---
HAS BM AGAIN AT THIS TIME, LARGE AMOUNT, PASTY TO LOOSE, AND DARK GREENISH BROWN COLOR. GIVEN BATH AND LINENS ARE CHANGE. TOLERATED THE PROCEDURE WELL.
--- NOTE | 2016-08-14 18:00 | NUR ---
RESTING IN BED. NO SIGNS OF PAIN. OCCASIONAL AGITATION NOTED. TOLERATING VENTILATOR WELL. O2 SAT 94-96%. SR ON MONITOR. SBP IN 90-150'S. NO ECTOPY NOTED. HOB ELEVATED. WILL CONTINUE TO MONITOR.
--- NOTE | 2016-08-14 19:02 | NUR ---
REPORT GIVEN TO INCOMING BUSINESS CONTINUITY STRATEGY DIRECTOR RN, DIANA DAMON.
--- NOTE | 2016-08-14 19:10 | NUR ---
REPORT GIVEN TO INCOMING ENGINE REPAIRER SERVICE RN, DIANA MOSELEY.
--- NOTE | 2016-08-14 19:20 | NUR ---
PM NOTES PT RESTING WITH EYES CLOSED, NOTED OPENS EYES TO VERBAL STIMULI. INTUBATED WITH VENT SETTINGS ASSESSED. ET TUBE RESTING ON RIGHT SIDE OF MOUTH. OGT FEEDING DIABETISOURCE AT 40ML/HR WITH 70ML RESIDUAL NOTED. IV LEFT UPPER ARM 20G FLUSHING WELL AND RUNNING D5.45NS AT 75ML/HR. NOTED IV RIGHT WRIST 20G FLUSHING WELL AND SALINE LOCKED. BILATERAL MITTEN RESTRAINTS, NOTED BRUISE TO LEFT WRIST AREA. AMES CATHETER PRESENT DRAINING CLEAR YELLOW URINE TO GRAVITY. ALL NEEDS BEING MET. DROPLET ISOLATION.
[2016-08-14] MEDS: LORazepam 2 MG/ML VIAL IVP PRN (21:34)
--- NOTE | 2016-08-14 21:34 | NUR ---
AGITATED ATIVAN 1MG IVP ADMINISTERED FOR AGITATION. WILL CONTINUE TO MONITOR. BED IN LOW POSITION, CALL LIGHT WITHIN REACH.
--- NOTE | 2016-08-14 22:39 | NUR ---
BOWEL MOVEMENT SMALL SOFT BROWN BOWEL MOVEMENT.
[2016-08-15] VITALS (35 sets, daily range): BP systolic 89–157; BP diastolic 45–98; PULSE 81–108; RESP 12–39; TEMP 97.1–98.2; O2SAT 89–100
[2016-08-15] MEDS: ALBUTEROL SULFATE 0.083% 2.5 MG/3 ML VIAL.NEB INH SCH ×4 (01:57→19:55)
[2016-08-15] MEDS: IPRATROPIUM BROM 0.5 MG/2.5 ML VIAL.NEB (ATROVENT) INH SCH ×4 (01:57→19:55)
[2016-08-15] MEDS: LORazepam 2 MG/ML VIAL IVP PRN ×5 (02:02→17:28)
--- NOTE | 2016-08-15 02:20 | NUR ---
CHG BATH GIVEN/BOWEL MOVEMENT
[2016-08-15] MEDS: PIPERACILLIN/TAZO 3.375/DEX-IS 50 ML IV SCH ×4 (05:07→23:25)
[2016-08-15 06:30] LABS: ANION GAP 9 (5-15); CALCIUM 7.9 mg/dL (8.4-11.0); CHLORIDE 106 mmol/L (98-107); CREATININE 1.47 mg/dL (0.55-1.30); GLUCOSE 242 mg/dL (70-99); POTASSIUM 3.5 mmol/L (3.5-5.1); SODIUM SERUM 137 mmol/L (136-145); UREA NITROGEN, BLOOD 42 mg/dL (8-21)
[2016-08-15 06:38] LABS: EOSINOPHILS # (AUTO) 0.1 K/uL (0.0-0.4); EOSINOPHILS % (AUTO) 0.5 % (0.0-4.0); HEMOGLOBIN 9.2 g/dL (12.0-16.0); LYMPHOCYTES # (AUTO) 0.3 K/uL (1.0-5.5); LYMPHOCYTES % (AUTO) 3.2 % (20.5-51.5); MEAN CORPUSCULAR HEMOGLOBIN 30 pg (27-31); MEAN CORPUSCULAR HGB CONC 34 % (32-36); MEAN CORPUSCULAR VOLUME 87 fL (79.0-98.0); MONOCYTES # (AUTO) 0.2 K/uL (0.0-1.0); MONOCYTES % (AUTO) 1.4 % (1.7-9.3); NEUTROPHILS # (AUTO) 10.2 K/uL (1.8-7.7); NEUTROPHILS % (AUTO) 94.9 % (40.0-70.0); PLATELET COUNT (AUTO) 235 K/uL (130-430); RED CELL DISTRIBUTION WIDTH 14.1 % (9.0-15.0); WHITE BLOOD COUNT (AUTO) 10.8 K/uL (4.8-10.8)
--- NOTE | 2016-08-15 06:50 | NUR ---
AIR MATTRESS ORDERED/C.DIFF SAMPLE AIR MATTRESS ORDERED WITH PRESCHOOL SUBSTITUTE TEACHER. NOTED PT HAD LOOSE STOOL, COLLECTED SAMPLE FOR POSSIBLE C.DIFF PER PROTOCOL. ALL NEEDS MET THROUGHOUT SHIFT. WILL ENDORSE CARE TO ONCOMING NURSE.
--- NOTE | 2016-08-15 07:30 | NUR ---
Nursing Pt awake with episode of restlessness- trying to pull out tubes and lethargy. No SOB on current vent settings, orally intubated. Logan catheter draining yellow urine with sediments. Safe environment provided. Will continue to monitor.
[2016-08-15 08:16] LABS: ABG TOTAL HEMOGLOBIN 11.1 G/dL (12.0-18.0); BLOOD GAS BASE EXCESS -3.6 mmol/L (-3.0-3.0); BLOOD GAS COHb% 0.3 % (0.5-1.5); BLOOD GAS HHB 6.6 % (0.0-6.0); BLOOD O2Hb% 92.8 % (94.0-97.0)
[2016-08-15] MEDS ORDERED: FUROSEMIDE 20 MG/2 ML VIAL IVP ONE (09:45)
[2016-08-15] MEDS: ASPIRIN 81 MG TAB.CHEW PO SCH (09:50)
[2016-08-15] MEDS: CARVEDILOL 3.125 MG TABLET (COREG) PO SCH ×3 (09:51→23:04)
[2016-08-15] MEDS: LACTOBACILLUS RHAMNOSUS GG 1 CAP CAPSULE PO SCH ×2 (09:51→20:55)
[2016-08-15] MEDS: POTASSIUM CHLORIDE 20 MEQ TAB.PRT.SR PO SCH ×2 (09:51→20:55)
[2016-08-15] MEDS: OSELTAMIVIR PHOSPHATE 75 MG CAPSULE PO SCH ×2 (09:51→20:55)
[2016-08-15] MEDS: ENOXAPARIN SODIUM 30 MG/0.3 ML SYRINGE SUBCUT SCH (09:52)
[2016-08-15] MEDS: HYDROCORTISONE SOD SUCC 100 MG/2 ML VIAL IVP SCH ×2 (09:52→20:55)
--- NOTE | 2016-08-15 10:00 | NUR ---
Skin care Observed pt with blanchable redness to sacrum and spine. Foam dressing applied to sacrum, as well as zguard. Zguard applied to spine. Pt is turned left - right only. Will continue to monitor.
[2016-08-15] MEDS: PANTOPRAZOLE SODIUM 40 MG/VIAL (PROTONIX) IVP SCH (10:11)
[2016-08-15] MEDS: D5/0.45 NS 1,000 ML IV SCH (10:11)
[2016-08-15] MEDS: MORPHINE 2 MG/ML INJ. SYRINGE IVP PRN (11:57)
--- NOTE | 2016-08-15 13:40 | NUR ---
Wound Re-Evaluation: Wound Consult ordered for low Patrice score. Assessment provided by staff nurse. Patient re-evaluated for a low Patrice score of 13. Patient was arousable, non-verbal, non-responsive to verbal commands, and received in an ICU [facility] Bed. Patient needs to be turned in bed. Skin is poor; Sacral area has erythema from IAD; Inferior Coccygeal area has scar tissue with dark discoloration. Recommend reposition patient side to side only every two hours with pillow support. Elevate, off-load, and float bilateral heels with pillows. Offload pressure areas with pillows for pressure re-distribution. Perform skin care and monitor skin integrity q shift. Use moisture barrier cream on moisture susceptible areas qid and prn for soiling. Place patient on a low air-loss mattress (which was ordered). Will continue to follow as a Patrice. For (bony) Coccygeal area, recommend continue: Cleanse site with normal saline. Pat dry. Put moisture barrier cream onto site. Cover with Sacral foam dressing. Perform site care daily, and as needed for dressing soiling or dislodgment.
--- NOTE | 2016-08-15 14:00 | NUR ---
Nursing Pt is lethargic but arousable. Lung sounds clear. No SOB. Will continue to monitor.
--- NOTE | 2016-08-15 16:00 | NUR ---
Nursing Update Resting in bed. No SOB. No sign of pain. Will continue to monitor.
[2016-08-15 17:22] LABS: BLOOD GAS BASE EXCESS -0.7 mmol/L (-3.0-3.0); BLOOD GAS PH 7.507 (7.350-7.450)
[2016-08-15 17:24] LABS: ABG TOTAL HEMOGLOBIN 11.6 G/dL (12.0-18.0); BLOOD GAS COHb% 0.2 % (0.5-1.5); BLOOD GAS HHB 12.1 % (0.0-6.0); BLOOD O2Hb% 87.3 % (94.0-97.0)
--- NOTE | 2016-08-15 19:20 | NUR ---
Report given to DIANA Ibanez and endorsed all care.
--- NOTE | 2016-08-15 20:00 | NUR ---
Received pt lethargic in bed. Intubated with ETT on AC setting and tolerating well. SR on tele. IVF via right upper arm PIV, line is patent and intact. Right wrist PIV saline lock. OGT with diabetasource at 40ml/hr. F/C present, urine is yellow with sediment. Repositioning left andf right q2h. Head of bed elevated. Will continue to monitor.
[2016-08-15] MEDS: HALOPERIDOL LACTATE 5 MG/ML VIAL IVP PRN (23:35)
[2016-08-16] VITALS (32 sets, daily range): BP systolic 77–152; BP diastolic 43–91; PULSE 71–123; RESP 16–38; TEMP 97.9–98.9; O2SAT 95–100
--- NOTE | 2016-08-16 | NUR ---
Pt was given Haldol due to agitation. Pt now resting. Repositioned and tolerated activity well. Will continue to monitor.
[2016-08-16] MEDS: ALBUTEROL SULFATE 0.083% 2.5 MG/3 ML VIAL.NEB INH SCH ×4 (00:52→20:00)
[2016-08-16] MEDS: IPRATROPIUM BROM 0.5 MG/2.5 ML VIAL.NEB (ATROVENT) INH SCH ×4 (00:53→20:00)
--- NOTE | 2016-08-16 04:00 | NUR ---
CHG bath given and linens changed. Pt tolerated well. Repositioned. Resumed OG tube feeding. Will continue to monitor.
[2016-08-16] MEDS: PIPERACILLIN/TAZO 3.375/DEX-IS 50 ML IV SCH ×4 (05:47→23:40)
[2016-08-16 06:37] LABS: HEMATOCRIT 25.1 % (36-48); HEMOGLOBIN 8.3 g/dL (12.0-16.0); MEAN CORPUSCULAR HEMOGLOBIN 29 pg (27-31); MEAN CORPUSCULAR HGB CONC 33 % (32-36); MEAN CORPUSCULAR VOLUME 88 fL (79.0-98.0); PLATELET COUNT (AUTO) 212 K/uL (130-430); RED BLOOD CELL COUNT(AUTO) 2.86 MIL/uL (4.2-6.2); RED CELL DISTRIBUTION WIDTH 14.3 % (9.0-15.0); WHITE BLOOD COUNT (AUTO) 10.6 K/uL (4.8-10.8)
[2016-08-16 06:55] LABS: ANION GAP 11 (5-15); CALCIUM 7.7 mg/dL (8.4-11.0); CHLORIDE 106 mmol/L (98-107); CREATININE 1.37 mg/dL (0.55-1.30); GLUCOSE 202 mg/dL (70-99); SODIUM SERUM 140 mmol/L (136-145); UREA NITROGEN, BLOOD 39 mg/dL (8-21)
--- NOTE | 2016-08-16 07:36 | NUR ---
Endorsed care to DIANA Merrill.
--- NOTE | 2016-08-16 07:46 | NUR ---
am rounds: report just given by estephania at bedside. patient on vent,ac=16,zz=117,peep=5,fio2=60%. with good saturation.ogt at 40cc/h in placed. with right upper arm ivf on going at 40cc/h. right wrist iv saline lock. with bilateral wrist restraint on,good color and circulation noted. with brooke draining to yellow urine.not in any respiratory distress.
[2016-08-16 08:26] LABS: BLOOD GAS PH 7.469 (7.350-7.450)
[2016-08-16 08:28] LABS: ABG TOTAL HEMOGLOBIN 10.4 G/dL (12.0-18.0); BLOOD GAS BASE EXCESS -0.1 mmol/L (-3.0-3.0); BLOOD GAS COHb% 0.1 % (0.5-1.5); BLOOD GAS HHB 4.1 % (0.0-6.0); BLOOD O2Hb% 95.3 % (94.0-97.0)
[2016-08-16] MEDS: D5/0.45 NS 1,000 ML IV SCH (08:43)
[2016-08-16] MEDS: PANTOPRAZOLE SODIUM 40 MG/VIAL (PROTONIX) IVP SCH (08:44)
[2016-08-16] MEDS: OSELTAMIVIR PHOSPHATE 75 MG CAPSULE PO SCH ×2 (08:45→20:50)
[2016-08-16] MEDS: HYDROCORTISONE SOD SUCC 100 MG/2 ML VIAL IVP SCH ×2 (08:45→20:49)
[2016-08-16] MEDS: LACTOBACILLUS RHAMNOSUS GG 1 CAP CAPSULE PO SCH ×2 (08:45→20:50)
[2016-08-16] MEDS: POTASSIUM CHLORIDE 20 MEQ TAB.PRT.SR PO SCH ×2 (08:45→20:50)
[2016-08-16 08:46] LABS: ATYPICAL LYMPHOCYTES % 0 % (0-0); BAND % (MANUAL) 1 % (0-6); BASOPHILS % (MANUAL) 0 % (0-2); EOSINOPHILS % (MANUAL) 0 % (0-7); LYMPHOCYTES % (MANUAL) 8 % (20-46); MONOCYTES % (MANUAL) 2 % (0-11)
[2016-08-16] MEDS: ASPIRIN 81 MG TAB.CHEW PO SCH (08:46)
[2016-08-16] MEDS: ENOXAPARIN SODIUM 30 MG/0.3 ML SYRINGE SUBCUT SCH (08:48)
[2016-08-16] MEDS: CARVEDILOL 3.125 MG TABLET (COREG) PO SCH ×2 (08:48→20:50)
[2016-08-16] MEDS: FUROSEMIDE 20 MG/2 ML VIAL IVP SCH (08:50)
[2016-08-16] MEDS ORDERED: POTASSIUM CHLORIDE 40 MEQ, LIDOCAINE JECT 2% PF 100 MG 50 MG in NS 250 ML IV ONE (09:00)
--- NOTE | 2016-08-16 09:30 | NUR ---
meds/ogt: no residuals prior to giving meds. flushed with water after giving meds.
--- NOTE | 2016-08-16 10:10 | NUR ---
oral care: oral care rendered.suctioned secretions via oral/et, obtained moderate amount of shepard color discharges.
--- NOTE | 2016-08-16 11:22 | NUR ---
rounds: maintained vent settings fio2=60%,o2 ooxzobofgb=475%. ogt feeds on going. right upper arm iv and k-rider on going intact. rbooke in situ.continue to monitor.
--- NOTE | 2016-08-16 13:10 | NUR ---
rounds: stable. with same vent settings,fio2=60%,good saturation. ogt feeds on going. with bilateral soft wrist restraint on.good color and circulation.brooke draining to clear urine with some sediments in the tube.ivf on going at right upper arm intact.continue to monitor.
--- NOTE | 2016-08-16 15:24 | NUR ---
suction: suctioned secretions orally after oral care. stable vital signs. with same vent settings. ogt feeds on going.continue to monitor.
--- NOTE | 2016-08-16 17:10 | NUR ---
suction: suctioned secretions orally and via et, obtained moderate amount shepard color discharges.continue to monitor.stable.
--- NOTE | 2016-08-16 18:35 | NUR ---
closing notes: with same vent settings,fio2=60%.o2 saturation=99%. ogt feeds on going. brooke in situ. ivf on going at right upper arm intact.right wrist iv saline lock in placed. with bilateral soft wrist restraint in placed. good color and circulation. stable.
--- NOTE | 2016-08-16 19:05 | NUR ---
transfer room: transferred patient to room icu bed #8 ,on air loss mattress bed. with same vent settings,fio2=60%,good saturation. ogt feeds on going. with brooke in situ. ivf on going at right upper arm intact. will give report to incoming night nurse patient in stable condition.
--- NOTE | 2016-08-16 20:00 | NUR ---
Received pt lethargic in bed. Intubated with ETT on AC setting and tolerating well. ST on tele. IVF via right upper arm PIV, line is patent and intact. Right wrist PIV saline lock. OGT with diabetasource at 40ml/hr. F/C present, urine is yellow. Repositioning left and right q2h. Head of bed elevated. Will continue to monitor.
[2016-08-17] VITALS (32 sets, daily range): BP systolic 81–157; BP diastolic 45–88; PULSE 80–116; RESP 22–35; TEMP 97.2–98.8; O2SAT 96–100
--- NOTE | 2016-08-17 | NUR ---
Oral care completed. Pt repositioned. Head of bed elevated. Pt grimacing, will medicate with Morphine. ST on tele. Will continue to monitor.
[2016-08-17] MEDS: MORPHINE 2 MG/ML INJ. SYRINGE IVP PRN ×2 (00:12→15:17)
[2016-08-17] MEDS: HALOPERIDOL LACTATE 5 MG/ML VIAL IVP PRN (01:31)
--- NOTE | 2016-08-17 01:35 | NUR ---
Pt appears agitated. Medicated with Haldol. Will continue to monitor.
[2016-08-17] MEDS: ALBUTEROL SULFATE 0.083% 2.5 MG/3 ML VIAL.NEB INH SCH ×4 (01:50→19:34)
[2016-08-17] MEDS: IPRATROPIUM BROM 0.5 MG/2.5 ML VIAL.NEB (ATROVENT) INH SCH ×4 (01:50→19:35)
--- NOTE | 2016-08-17 04:00 | NUR ---
Bed bath given. Removed right upper arm 20 PIV, no longer patent, catheter intact. IVF now running via right wrist 20g. Pt repositioned, head of bed elevated. Will continue to monitor.
[2016-08-17] MEDS: PIPERACILLIN/TAZO 3.375/DEX-IS 50 ML IV SCH ×3 (05:46→17:39)
[2016-08-17 06:49] LABS: BASOPHILS % (AUTO) 0.1 % (0.0-2.0); EOSINOPHILS % (AUTO) 0.2 % (0.0-4.0); HEMATOCRIT 26.1 % (36-48); HEMOGLOBIN 8.6 g/dL (12.0-16.0); LYMPHOCYTES # (AUTO) 0.5 K/uL (1.0-5.5); LYMPHOCYTES % (AUTO) 3.7 % (20.5-51.5); MEAN CORPUSCULAR HEMOGLOBIN 29 pg (27-31); MEAN CORPUSCULAR HGB CONC 33 % (32-36); MEAN CORPUSCULAR VOLUME 87 fL (79.0-98.0); MONOCYTES # (AUTO) 0.2 K/uL (0.0-1.0); MONOCYTES % (AUTO) 1.2 % (1.7-9.3); NEUTROPHILS # (AUTO) 11.9 K/uL (1.8-7.7); NEUTROPHILS % (AUTO) 94.8 % (40.0-70.0); PLATELET COUNT (AUTO) 244 K/uL (130-430); RED CELL DISTRIBUTION WIDTH 14.4 % (9.0-15.0); WHITE BLOOD COUNT (AUTO) 12.6 K/uL (4.8-10.8)
--- NOTE | 2016-08-17 07:11 | NUR ---
Endorsed care to DIANA Merrill.
[2016-08-17 07:13] LABS: ANION GAP 9 (5-15); CALCIUM 7.9 mg/dL (8.4-11.0); CHLORIDE 106 mmol/L (98-107); CREATININE 1.37 mg/dL (0.55-1.30); GLUCOSE 223 mg/dL (70-99); POTASSIUM 3.1 mmol/L (3.5-5.1); SODIUM SERUM 141 mmol/L (136-145); UREA NITROGEN, BLOOD 38 mg/dL (8-21)
--- NOTE | 2016-08-17 07:45 | NUR ---
am rounds: patient on the bed,sleeping. connect to vent,fio2=60%,good saturation. ogt feeds at 40cc/h.ivf at right wrist intact. with bilateral soft wrist restraint ,good color and circulation. swollen both hands,elevated with pillows. brooke draining to clear yellow urine with sediments noted. sinus rhythm .continue to monitor.
[2016-08-17 08:24] LABS: ABG TOTAL HEMOGLOBIN 10.1 G/dL (12.0-18.0); BLOOD GAS COHb% 0.3 % (0.5-1.5); BLOOD GAS HHB 4.1 % (0.0-6.0); BLOOD O2Hb% 95.1 % (94.0-97.0)
--- NOTE | 2016-08-17 09:15 | NUR ---
meds/ogt: no residuals prior to giving meds. well tolerated.
[2016-08-17] MEDS: POTASSIUM CHLORIDE 20 MEQ TAB.PRT.SR PO SCH ×2 (09:20→21:29)
[2016-08-17] MEDS: OSELTAMIVIR PHOSPHATE 75 MG CAPSULE PO SCH ×2 (09:20→21:29)
[2016-08-17] MEDS: LACTOBACILLUS RHAMNOSUS GG 1 CAP CAPSULE PO SCH (09:20)
[2016-08-17] MEDS: ASPIRIN 81 MG TAB.CHEW PO SCH (09:20)
[2016-08-17] MEDS: D5/0.45 NS 1,000 ML IV SCH (09:20)
[2016-08-17] MEDS: ENOXAPARIN SODIUM 30 MG/0.3 ML SYRINGE SUBCUT SCH (09:21)
[2016-08-17] MEDS: CARVEDILOL 3.125 MG TABLET (COREG) PO SCH ×2 (09:21→21:30)
[2016-08-17] MEDS: HYDROCORTISONE SOD SUCC 100 MG/2 ML VIAL IVP SCH ×2 (09:21→21:29)
[2016-08-17] MEDS: PANTOPRAZOLE SODIUM 40 MG/VIAL (PROTONIX) IVP SCH (09:21)
[2016-08-17] MEDS: FUROSEMIDE 20 MG/2 ML VIAL IVP SCH (09:22)
[2016-08-17] MEDS ORDERED: POTASSIUM CHLORIDE 40 MEQ, LIDOCAINE JECT 2% PF 100 MG 50 MG in NS 250 ML IV ONE (09:45)
--- NOTE | 2016-08-17 10:20 | NUR ---
oral care : oral care rendered.
--- NOTE | 2016-08-17 10:30 | NUR ---
suction: suctioned secretions orally,obtained moderate amount of shepard color secretions
--- NOTE | 2016-08-17 12:00 | NUR ---
care notes: had soft yellowish stools.care rendered, z-guard applied to sacral area.
[2016-08-17] MEDS: LORazepam 2 MG/ML VIAL IVP PRN (13:10)
--- NOTE | 2016-08-17 13:15 | NUR ---
agitation: ativan 1 mg ivp given for agitation.
--- NOTE | 2016-08-17 13:17 | NUR ---
iv notes: another iv inserted by can at left forearm using g#20,k-rider and ivf on going .
--- NOTE | 2016-08-17 14:30 | NUR ---
pulmo rounds: patient seen by dr hirsch with orders decreased ivf rate to 30cc/h. add iv lasix as ordered. et lip line push down 1 cm per rt as ordered.
--- NOTE | 2016-08-17 15:17 | NUR ---
pain meds: restless,rt to adjust et lip line push down 1cm deep,due iv pain meds given as ordered.
--- NOTE | 2016-08-17 15:30 | NUR ---
RT NOTES PER DR. PEREZ, ADVANCE ET TUBE ONE CM. CURRENTLY AT 20CM UPPER LIP LINE. NO RESPIRATORY DISTRESS NOTED AT THIS TIME. RN ROB AT BEDSIDE. AND AWARE OF CHANGE.
[2016-08-17] MEDS ORDERED: FUROSEMIDE 20 MG/2 ML VIAL IVP ONE (16:00)
--- NOTE | 2016-08-17 16:30 | NUR ---
ROUNDS: PATIENT'S SON AT BEDSIDE.STABLE WITH SAME VENT SETTINGS,FIO2=60%. GOOD SATURATION.
--- NOTE | 2016-08-17 18:00 | NUR ---
FLUSH/OGT: FLUSHED WITH WATER ORDERED. NO RESPIRATORY DISTRESS NOTED. WITH SAME VENT SETTINGS,FIO2=60%.
--- NOTE | 2016-08-17 18:45 | NUR ---
CLOSING NOTES: PATIENT STABLE. WITH SAME VENT SETTINGS,FIO2=60%. GOOD SATURATION. OGT FEEDS IN PLACED. AMES IN SITU. IVF RUNNING AT 30CC/H ORDERED. WILL GIVE REPORT TO INCOMING NIGHT NURSE.SINUS TACH,ASYMPTOMATIC.
--- NOTE | 2016-08-17 20:22 | NUR ---
Patient awake ETT Tube in place HOB elevated on ventilator AC 16 TV 400 PEEP 5 60 % assist for position change patient is non verbal skin dry warm chest movement shallow also symmetrical comfort measures implemented / .
--- NOTE | 2016-08-17 22:00 | NUR ---
Reposition & Turn patient OGT tube patent in place Tube feeding 40 ml hour no SOB noted assist as needed / .
--- NOTE | 2016-08-17 22:02 | NUR ---
solu - CORTEF 50 MG IVP administer as ordered respirations regular also unlabored .
[2016-08-18] VITALS (34 sets, daily range): BP systolic 88–160; BP diastolic 33–134; PULSE 72–127; RESP 17–34; TEMP 97.8–98.4; O2SAT 93–100
[2016-08-18] MEDS: PIPERACILLIN/TAZO 3.375/DEX-IS 50 ML IV SCH ×4 (00:59→17:52)
[2016-08-18] MEDS: ALBUTEROL SULFATE 0.083% 2.5 MG/3 ML VIAL.NEB INH SCH ×4 (01:33→19:59)
[2016-08-18] MEDS: IPRATROPIUM BROM 0.5 MG/2.5 ML VIAL.NEB (ATROVENT) INH SCH ×4 (01:33→19:59)
--- NOTE | 2016-08-18 01:46 | NUR ---
ETT Tube suction up right position , moderate amount of thick shepard sputum return , patient tolerated / .
--- NOTE | 2016-08-18 01:48 | NUR ---
ZOSYN 3.375 GM IVPB administer as ordered no allergic reaction noted skin clear no hives rash .
--- NOTE | 2016-08-18 05:13 | NUR ---
CHG bed bath given reposition & skin care also tolerated / .
--- NOTE | 2016-08-18 05:40 | NUR ---
patient change from 60 % to 50 % on vent. this hour / .
[2016-08-18 07:29] LABS: BASOPHILS % (AUTO) 0.1 % (0.0-2.0); EOSINOPHILS # (AUTO) 0.1 K/uL (0.0-0.4); EOSINOPHILS % (AUTO) 0.9 % (0.0-4.0); HEMATOCRIT 27.1 % (36-48); HEMOGLOBIN 8.8 g/dL (12.0-16.0); LYMPHOCYTES # (AUTO) 0.6 K/uL (1.0-5.5); LYMPHOCYTES % (AUTO) 3.8 % (20.5-51.5); MEAN CORPUSCULAR HEMOGLOBIN 28 pg (27-31); MEAN CORPUSCULAR HGB CONC 32 % (32-36); MEAN CORPUSCULAR VOLUME 87 fL (79.0-98.0); MONOCYTES # (AUTO) 0.2 K/uL (0.0-1.0); MONOCYTES % (AUTO) 1.5 % (1.7-9.3); NEUTROPHILS # (AUTO) 13.8 K/uL (1.8-7.7); NEUTROPHILS % (AUTO) 93.7 % (40.0-70.0); PLATELET COUNT (AUTO) 287 K/uL (130-430); RED BLOOD CELL COUNT(AUTO) 3.13 MIL/uL (4.2-6.2); WHITE BLOOD COUNT (AUTO) 14.7 K/uL (4.8-10.8)
[2016-08-18 07:47] LABS: ABG TOTAL HEMOGLOBIN 10.4 G/dL (12.0-18.0); BLOOD GAS BASE EXCESS 6.5 mmol/L (-3.0-3.0); BLOOD GAS COHb% 0.5 % (0.5-1.5); BLOOD GAS HHB 5.4 % (0.0-6.0); BLOOD GAS PH 7.548 (7.350-7.450); BLOOD O2Hb% 93.5 % (94.0-97.0)
[2016-08-18 07:53] LABS: ANION GAP 9 (5-15); CHLORIDE 104 mmol/L (98-107); CREATININE 1.23 mg/dL (0.55-1.30); GLUCOSE 201 mg/dL (70-99); POTASSIUM 3.1 mmol/L (3.5-5.1); SODIUM SERUM 143 mmol/L (136-145); UREA NITROGEN, BLOOD 39 mg/dL (8-21)
--- NOTE | 2016-08-18 08:00 | NUR ---
NURSE: RECEIVED PT FROM SAND CASTER APPRENTICE AT 0720, ON VENT, AC16, VT400, FIO2 50%, P5, VIA ETT 7.0 L20, SATING 96%, TACHYCARDIAC AT 129, TACHYPNEIC, ON BILATERAL WRIST RESTRAINTS, BP153/85, NO RESP DISTRESS NOTED, AFEBRILE, TO CONTINUE TO MONITOR CLOSELY. DR AU WAS HERE IN THE UNIT.
[2016-08-18] MEDS: POTASSIUM CHLORIDE 20 MEQ TAB.PRT.SR PO SCH ×2 (08:51→21:47)
[2016-08-18] MEDS: CARVEDILOL 3.125 MG TABLET (COREG) PO SCH ×2 (08:51→21:47)
[2016-08-18] MEDS: ASPIRIN 81 MG TAB.CHEW PO SCH (08:51)
[2016-08-18] MEDS: HYDROCORTISONE SOD SUCC 100 MG/2 ML VIAL IVP SCH ×2 (08:51→21:46)
[2016-08-18] MEDS: OSELTAMIVIR PHOSPHATE 75 MG CAPSULE PO SCH ×2 (08:51→21:47)
[2016-08-18] MEDS: PANTOPRAZOLE SODIUM 40 MG/VIAL (PROTONIX) IVP SCH (08:52)
[2016-08-18] MEDS: FUROSEMIDE 20 MG/2 ML VIAL IVP SCH (08:52)
[2016-08-18] MEDS: LORazepam 2 MG/ML VIAL IVP PRN (08:53)
[2016-08-18] MEDS: ENOXAPARIN SODIUM 30 MG/0.3 ML SYRINGE SUBCUT SCH (08:53)
[2016-08-18] MEDS ORDERED: POTASSIUM CHLORIDE 40 MEQ in NS 250 ML IV ONE (09:30)
--- NOTE | 2016-08-18 10:00 | NUR ---
NURSE: DR PEREZ WAS HERE, SHE SAID TO CONSULT DR GARCIA FOR POSSIBLE TRACH.
--- NOTE | 2016-08-18 12:00 | NUR ---
NURSE; DR GARCIA CAME TO SEE THE PT, HE SAID HE WILL CONTACT THE PT'S FAMILY AND DISCUSS WITH THEM THE POSSIBILITY OF TRACH PLACEMENT.
--- NOTE | 2016-08-18 14:00 | NUR ---
NURSE: DR CHÁVEZ WAS HERE, HE IS AWARE THAT PT'S BP WAS ON THE LOW SIDE EARLIER TODAY. NO ORDERS WERE MADE.
--- NOTE | 2016-08-18 15:30 | NUR ---
CARE ASSUMED CARE ASSUMED FROM Jacques PÉREZ RN.
[2016-08-18] MEDS: D5/0.45 NS 1,000 ML IV SCH (16:00)
--- NOTE | 2016-08-18 16:00 | NUR ---
ASSESSMENT RESTING QUIETLY, AROUSED SLIGHTLY TO TACTILE STIMULUS. ON VENT, NO RESP DISTRESS, MINIMAL SECRETIONS. NO RESIDUAL FROM OGT FEEDING, NO BM. REPOSITIONED IN BED, IS ON LOW-AIRLOSS, BRAYDEN MATTRESS, HEELS ARE ELEVATED OFF BED W PILLOW. HOB IS ELEVATED 30 DEGREES. RESTRAINTS IN USE PT REACHES UP TO ETT WHEN NOT RESTRAINED/ GRAND-DAUGHTER VISITED EARLIER, QUESTIONS ANSWERED REGARDING TRACHEOSTOMY SCHEDULED FOR TOMORROW.
--- NOTE | 2016-08-18 20:00 | NUR ---
Family at bedside. Discussed plan of care. Pt remains on vent via ETT and is scheduled for a tracheostomy 08/19/16. Pt is obtunded. ST on telemetry. IVF via right wrist. Diabetisource via OGT, tolerating well. F/C, output is yellow with sediment. Head of bed elevated. Oral care completed. Will continue to monitor.
[2016-08-18] MEDS ORDERED: FUROSEMIDE 20 MG/2 ML VIAL IVP SCH (21:00)
[2016-08-19] VITALS (36 sets, daily range): BP systolic 99–165; BP diastolic 47–94; PULSE 78–138; RESP 12–29; TEMP 98–99.2; O2SAT 93–99
--- NOTE | 2016-08-19 | NUR ---
Oral care given to pt. IV abx running at this time. Scant residual from NGT. Head of bed elevated. Pt repositioned. Will continue to monitor.
[2016-08-19] MEDS: PIPERACILLIN/TAZO 3.375/DEX-IS 50 ML IV SCH ×3 (00:45→12:36)
[2016-08-19] MEDS: IPRATROPIUM BROM 0.5 MG/2.5 ML VIAL.NEB (ATROVENT) INH SCH ×4 (00:58→19:31)
[2016-08-19] MEDS: ALBUTEROL SULFATE 0.083% 2.5 MG/3 ML VIAL.NEB INH SCH ×4 (00:58→19:32)
--- NOTE | 2016-08-19 04:00 | NUR ---
CHG bath given. Oral care given. Pt had one large, loose BM. SR to ST on tele. Bilateral soft wrist restraints in place. Head of bed elevated. Repositioning left and right only. Will continue to monitor.
[2016-08-19 06:32] LABS: BASOPHILS % (AUTO) 0.1 % (0.0-2.0); EOSINOPHILS # (AUTO) 0.1 K/uL (0.0-0.4); EOSINOPHILS % (AUTO) 0.4 % (0.0-4.0); HEMATOCRIT 27.8 % (36-48); HEMOGLOBIN 8.9 g/dL (12.0-16.0); LYMPHOCYTES # (AUTO) 0.6 K/uL (1.0-5.5); LYMPHOCYTES % (AUTO) 4.3 % (20.5-51.5); MEAN CORPUSCULAR HEMOGLOBIN 28 pg (27-31); MEAN CORPUSCULAR HGB CONC 32 % (32-36); MEAN CORPUSCULAR VOLUME 88 fL (79.0-98.0); MONOCYTES # (AUTO) 0.3 K/uL (0.0-1.0); MONOCYTES % (AUTO) 2.4 % (1.7-9.3); NEUTROPHILS # (AUTO) 12.1 K/uL (1.8-7.7); NEUTROPHILS % (AUTO) 92.8 % (40.0-70.0); PLATELET COUNT (AUTO) 292 K/uL (130-430); RED BLOOD CELL COUNT(AUTO) 3.15 MIL/uL (4.2-6.2); RED CELL DISTRIBUTION WIDTH 14.8 % (9.0-15.0); WHITE BLOOD COUNT (AUTO) 13.1 K/uL (4.8-10.8)
[2016-08-19 06:42] LABS: ANION GAP 7 (5-15); CALCIUM 8.1 mg/dL (8.4-11.0); CHLORIDE 103 mmol/L (98-107); GLUCOSE 212 mg/dL (70-99); POTASSIUM 3.4 mmol/L (3.5-5.1); SODIUM SERUM 142 mmol/L (136-145); UREA NITROGEN, BLOOD 43 mg/dL (8-21)
[2016-08-19 07:50] LABS: ABG TOTAL HEMOGLOBIN 9.5 G/dL (12.0-18.0); BLOOD GAS BASE EXCESS 9.9 mmol/L (-3.0-3.0); BLOOD GAS COHb% 0.3 % (0.5-1.5); BLOOD GAS PH 7.543 (7.350-7.450); BLOOD O2Hb% 96.8 % (94.0-97.0)
[2016-08-19 07:51] LABS: BLOOD GAS HHB 2.4 % (0.0-6.0)
[2016-08-19] MEDS: PANTOPRAZOLE SODIUM 40 MG/VIAL (PROTONIX) IVP SCH (09:25)
[2016-08-19] MEDS: ENOXAPARIN SODIUM 30 MG/0.3 ML SYRINGE SUBCUT SCH (09:26)
--- NOTE | 2016-08-19 09:30 | NUR ---
TRACHEOSTOMY OR CREW, DR. ROJAS AND DR. GARCIA AT BEDSIDE TO SET UP FOR TRACHEOSTOMY.
--- NOTE | 2016-08-19 10:00 | NUR ---
TRACHEOSTOMY TRACHEOSTOMY INSERTION COMPLETED. # 7 KRYSTAL. DRESSING TO TRACH SITE, NO BLEEDING NOTED. PT MAYANK PROCEDURE WELL.
[2016-08-19] MEDS: ASPIRIN 81 MG TAB.CHEW PO SCH (12:35)
[2016-08-19] MEDS: POTASSIUM CHLORIDE 20 MEQ TAB.PRT.SR PO SCH ×2 (12:35→21:34)
[2016-08-19] MEDS: CARVEDILOL 3.125 MG TABLET (COREG) PO SCH ×2 (12:36→21:00)
[2016-08-19] MEDS: D5/0.45 NS 1,000 ML IV SCH (12:41)
[2016-08-19] MEDS: MORPHINE 2 MG/ML INJ. SYRINGE IVP PRN ×2 (15:19→18:46)
--- NOTE | 2016-08-19 15:30 | NUR ---
TRACHEOSTOMY DR. GARCIA NOTIFIED OF SANGUINEOUS DRAINAGE FROM AROUND TRACH TUBE.
--- NOTE | 2016-08-19 16:30 | NUR ---
Wound Re-Evaluation: Wound Consult ordered for low Patrice score. Assessment provided by DIANA Thompson. Patient re-evaluated for a continued low Patrice score of 13. Patient was arousable, non-verbal, non-responsive to verbal commands, and received in an ICU [facility] Bed with a Sean XPRT Mattress. Patient needs to be turned in bed. Skin is poor; Sacral area has erythema from IAD; Inferior Coccygeal area has scar tissue with dark discoloration. Recommend reposition patient side to side only every two hours with pillow support. Elevate, off-load, and float bilateral heels with pillows. Offload pressure areas with pillows for pressure re-distribution. Perform skin care and monitor skin integrity q shift. Use moisture barrier cream on moisture susceptible areas qid and prn for soiling. Maintain patient on a low air-loss mattress. Will continue to follow as a Patrice. For (bony) Coccygeal area, recommend continue: Cleanse site with normal saline. Pat dry. Put moisture barrier cream onto site. Cover with Sacral foam dressing. Perform site care daily, and as needed for dressing soiling or dislodgment.
--- NOTE | 2016-08-19 18:30 | NUR ---
DR. JOSE GARCIA AT BEDSIDE, REMOVED PACKING AROUND TRACH AND REPACKED WITH SURGICEL AND IODOFORM GAUZE. PT WAS RE-MEDICATED WITH MORPHINE.
--- NOTE | 2016-08-19 19:45 | NUR ---
PM ASSESS PT AWAKE, EYES OPEN, A/OX1. SR-ST ON THE MONITOR. IV SITE ON RT HAND 20G SL AND LT WRIT 20G, INTACT AND PATENT, INFUSING D5 1/2NS@30ML/HR. LUNG SOUNDS BILAT CLEAR UPPER LOBES AND RHONCHI ON BILAT BASES, TRACH PLACEMENT TODAY, SITE BLEEDING DR. GARCIA AWARE AND PACKED SITE, VENT SETTINGS AC12/ TV400/ FIO2 40%/PEEP5. OGT PLACEMENT CHECKED, 0ML RESIDUALS, TFEEDING DIABETASOURCE@40ML/HR. AMES CATHETER DRAINING TO GRAVITY W/ YELLOW CLOUDY URINE. CALL LIGHT W/IN REACH, SAFETY PRECAUTIONS IN PLACE, WILL CONTINUE TO MONITOR.
[2016-08-19] MEDS: OSELTAMIVIR PHOSPHATE 75 MG CAPSULE PO SCH (21:33)
[2016-08-19] MEDS: HYDROCORTISONE SOD SUCC 100 MG/2 ML VIAL IVP SCH (21:35)
--- NOTE | 2016-08-19 21:51 | NUR ---
MEDS DUE MEDS GIVEN, PT TOLERATING WELL. CALL LIGHT W/IN REACH, SAFETY PRECAUTIONS IN PLACE, WILL CONTINUE TO MONITOR. Addendum: 08/20/16 at 0322 by Dora Porter RN COREG HELD SBP 99, COREG HELD.
[2016-08-20] VITALS (36 sets, daily range): BP systolic 83–149; BP diastolic 41–86; PULSE 91–136; RESP 17–31; TEMP 97.9–99.7; O2SAT 90–99
--- NOTE | 2016-08-20 | NUR ---
AGITATED ATIVAN GIVEN, PT TOLERATING WELL WILL REASSESS SHORTLY. CALL LIGHT W/IN REACH, SAFETY PRECAUTIONS IN PLACE, WILL CONTINUE TO MONITOR.
[2016-08-20] MEDS: ALBUTEROL SULFATE 0.083% 2.5 MG/3 ML VIAL.NEB INH SCH ×3 (01:17→13:24)
[2016-08-20] MEDS: IPRATROPIUM BROM 0.5 MG/2.5 ML VIAL.NEB (ATROVENT) INH SCH ×5 (01:17→21:48)
--- NOTE | 2016-08-20 01:40 | NUR ---
FIO2 INCREASED RT STATED THAT PT O2SAT DECREASED, RT INCREASED FOI2 TO 50% FROM 40%. PT TOLERATING WELL. SAFETY PRECAUTIONS IN PLACE, WILL CONTINUE TO MONITOR.
--- NOTE | 2016-08-20 02:00 | NUR ---
ABX DUE ABX GIVEN, PT TOLERATING WELL. CALL LIGHT W/IN REACH, SAFETY PRECAUTIONS IN PLACE, WILL CONTINUE TO MONITOR.
[2016-08-20] MEDS: PIPERACILLIN/TAZO 3.375/DEX-IS 50 ML IV SCH ×2 (02:50→05:23)
[2016-08-20] MEDS: MORPHINE 2 MG/ML INJ. SYRINGE IVP PRN ×2 (05:21→21:46)
--- NOTE | 2016-08-20 05:24 | NUR ---
PAIN PT IN PAIN, MORPHINE GIVEN, PT TOLERATING WELL WILL REASSESS SHORTLY. CALL LIGHT W/IN REACH, SAFETY PRECAUTIONS IN PLACE, WILL CONTINUE TO MONITOR.
[2016-08-20] MEDS: LORazepam 2 MG/ML VIAL IVP PRN ×3 (05:28→17:23)
[2016-08-20 06:57] LABS: HEMATOCRIT 24.4 % (36-48); MEAN CORPUSCULAR HEMOGLOBIN 29 pg (27-31); MEAN CORPUSCULAR HGB CONC 33 % (32-36); MEAN CORPUSCULAR VOLUME 88 fL (79.0-98.0); PLATELET COUNT (AUTO) 278 K/uL (130-430); RED BLOOD CELL COUNT(AUTO) 2.76 MIL/uL (4.2-6.2); RED CELL DISTRIBUTION WIDTH 14.8 % (9.0-15.0)
[2016-08-20 07:10] LABS: ANION GAP 9 (5-15); CALCIUM 7.9 mg/dL (8.4-11.0); CHLORIDE 101 mmol/L (98-107); CREATININE 1.47 mg/dL (0.55-1.30); GLUCOSE 285 mg/dL (70-99); POTASSIUM 3.4 mmol/L (3.5-5.1); SODIUM SERUM 141 mmol/L (136-145); UREA NITROGEN, BLOOD 46 mg/dL (8-21)
--- NOTE | 2016-08-20 07:18 | NUR ---
AM shift Patient in bed, calm, non-verbal, opens eyes to verbal stimuli, PERRL 2mm sluggish, OGT tube diabetisource at 40ml/hr, tracheostomy done yesterday connected to vent moderate dry blood around the stoma, sinus tachycardia, abdomen flat, soft normoactive bowel sounds, upper and lower extremities minimal contractures elevated on pillows, up/low right left extremities distal swelling, non-pitting edema, Logan to gravity clear yellow urine with sediments, left forearm iv D5 1/2NS 30ml/hr, right wrist IV hep lock, soft wrist restrains for tubes/drain/trache/OGT protection. No signs of acute distress. Bed in low position, side rails up, call light in reach.
--- NOTE | 2016-08-20 07:20 | NUR ---
RT At bedside for breathing treatment
--- NOTE | 2016-08-20 07:48 | NUR ---
MD Preston At bedside evaluating the patient
[2016-08-20] MEDS ORDERED: POTASSIUM CHLORIDE 20 MEQ in NS 250 ML IV ONE (08:15)
--- NOTE | 2016-08-20 08:15 | NUR ---
CLOSING ALL NEEDS MET. ENDORSED CARE TO NURSE LORE ORTIZ.
[2016-08-20] MEDS: HYDROCORTISONE SOD SUCC 100 MG/2 ML VIAL IVP SCH ×2 (08:51→20:55)
[2016-08-20] MEDS: PANTOPRAZOLE SODIUM 40 MG/VIAL (PROTONIX) IVP SCH (08:52)
[2016-08-20] MEDS: POTASSIUM CHLORIDE 20 MEQ TAB.PRT.SR PO SCH ×2 (08:53→21:42)
[2016-08-20] MEDS: ASPIRIN 81 MG TAB.CHEW PO SCH (08:54)
[2016-08-20] MEDS: ENOXAPARIN SODIUM 30 MG/0.3 ML SYRINGE SUBCUT SCH (08:54)
[2016-08-20] MEDS: OSELTAMIVIR PHOSPHATE 75 MG CAPSULE PO SCH (08:54)
[2016-08-20] MEDS: CARVEDILOL 3.125 MG TABLET (COREG) PO SCH ×2 (08:55→21:43)
[2016-08-20] MEDS: D5/0.45 NS 1,000 ML IV SCH ×2 (08:56→20:31)
[2016-08-20] MEDS ORDERED: FUROSEMIDE 20 MG/2 ML VIAL IVP SCH (09:00)
--- NOTE | 2016-08-20 09:23 | NUR ---
MD Healy At bedside evaluating the patient
[2016-08-20 09:29] LABS: ATYPICAL LYMPHOCYTES % 0 % (0-0); BAND % (MANUAL) 0 % (0-6); BASOPHILS % (MANUAL) 0 % (0-2); EOSINOPHILS % (MANUAL) 0 % (0-7); LYMPHOCYTES % (MANUAL) 3 % (20-46); MONOCYTES % (MANUAL) 2 % (0-11)
--- NOTE | 2016-08-20 09:44 | NUR ---
IV Right Wrist Not patent, leaking at site of insertion, no infiltration. IV removed. Dressing applied.
--- NOTE | 2016-08-20 09:45 | NUR ---
New IV 22G peripheral IV right forearm, flushed 10cc NS, patent.
--- NOTE | 2016-08-20 11:20 | NUR ---
Atil At bedside evaluating the patient
--- NOTE | 2016-08-20 11:20 | NUR ---
DISCHARGE PLANNING DC planning for SubAcute placement. Faxed referral to [facility] . Will follow up. Addendum: 08/20/16 at 1650 by Jessica Christensen DP spoke with Jamie in admitting at [facility] patient accepted and will have bed available for patient upon discharge. CM made aware.
[2016-08-20] MEDS: METOPROLOL TARTRATE 5 MG/5 ML VIAL IVP PRN (12:00)
--- NOTE | 2016-08-20 13:30 | NUR ---
RT At bedside for breathing treatment
--- NOTE | 2016-08-20 14:32 | NUR ---
Family Son at bedside. Opportunity for questions and answers. Son has no questions regarding the patient.
--- NOTE | 2016-08-20 16:00 | NUR ---
Diet New bag Diabetisource initiated
--- NOTE | 2016-08-20 16:43 | NUR ---
Agitation Patient appears more agitated than previous hours. HR and BP increase.
--- NOTE | 2016-08-20 18:03 | NUR ---
Rounds Patient asleep, calm, resting.
--- NOTE | 2016-08-20 19:30 | NUR ---
Care endorsed to Grace ORTIZ via SBAR
--- NOTE | 2016-08-20 20:00 | NUR ---
PM SHIFT ASSESSMENT, PT ON THE VENT, NO RESP DISTRESS NOTED. HR FAST. T 99.7. PT RESTLESS. MADE HER COMFORTABLE IN BED.
[2016-08-20] MEDS: CEFEPIME 1 GM in D5W 50 ML IV SCH (20:56)
--- NOTE | 2016-08-20 21:46 | NUR ---
PT RESTLESS, FLACC PAIN SCALE 7, MED WITH MORPHINE PER ORDER.
--- NOTE | 2016-08-20 22:00 | NUR ---
TRACH SITE WITH BLOOD CLOTS. DIDNOT REMOVE THE CLOT CHANCE OF BLEEDING AGAIN.
--- NOTE | 2016-08-20 22:40 | NUR ---
RESUMED CARE: Patient's eyes closed. Non-verbal, does not follow commands. Breathing even and unlabored. Sinus tach on the monitor. Afebrile. On tracheostomy Shiley 8 attached to a vent with vent settings AC 12, TV 400, FiO2 50%, Peep 5. OGT in place, patent and intact. Diabetisource AC running at 40ml/hr. with 10 residual noted. IV access on the left forearm 20G patent and intact and right forearm 22G on saline lock. Bilateral wrist restraints in place with good circulation on both extremities. Logan cath draining yellow urine. Buttocks noted to be denuded. HOB elevated at 30 degrees with 2 side rails up and bed in lowest level. Bed brakes locked. Call light within reach. Will continue to monitor.
--- NOTE | 2016-08-20 23:00 | NUR ---
CHG BATH GIVEN. INCONT WITH LARGE AMT OF SOFT FORMED STOOL.ALEJANDRO,ANAL AND RECTAL AREA DENUDED. CLEANED AND Z GUARD CREAM APPLIED. REPORT GIVEN TO Gris PERKINS SHE TOOK OVER PT CARE.
[2016-08-21] VITALS (36 sets, daily range): BP systolic 72–140; BP diastolic 49–92; PULSE 92–138; RESP 13–36; TEMP 97.8–98.6; O2SAT 94–99
--- NOTE | 2016-08-21 00:14 | NUR ---
PT UPDATE: Patient in no acute distress or SOB at this time. Patient sleeping comfortably. Repositioned for comfort. Good circulation observed on both upper extremities. Vent settings and tube feeding tolerating well. Will continue to monitor.
[2016-08-21] MEDS: ALBUTEROL SULFATE 0.083% 2.5 MG/3 ML VIAL.NEB INH SCH ×5 (01:31→20:10)
[2016-08-21] MEDS: IPRATROPIUM BROM 0.5 MG/2.5 ML VIAL.NEB (ATROVENT) INH SCH ×4 (01:32→20:11)
[2016-08-21] MEDS: LORazepam 2 MG/ML VIAL IVP PRN ×2 (01:48→09:24)
--- NOTE | 2016-08-21 02:12 | NUR ---
PT UPDATE: Patient noted to be sleeping comfortably at this time. No acute distress or SOB noted. Vent settings tolerating well. Dry blood noted on the trach site. No signs of infection at the site. Will continue to monitor.
--- NOTE | 2016-08-21 05:24 | NUR ---
Freight Hustler at bedside for AM lab draw.
[2016-08-21 06:31] LABS: EOSINOPHILS # (AUTO) 0.1 K/uL (0.0-0.4); EOSINOPHILS % (AUTO) 0.3 % (0.0-4.0); HEMATOCRIT 23.1 % (36-48); HEMOGLOBIN 7.6 g/dL (12.0-16.0); LYMPHOCYTES # (AUTO) 0.6 K/uL (1.0-5.5); LYMPHOCYTES % (AUTO) 2.9 % (20.5-51.5); MEAN CORPUSCULAR HEMOGLOBIN 29 pg (27-31); MEAN CORPUSCULAR HGB CONC 33 % (32-36); MEAN CORPUSCULAR VOLUME 88 fL (79.0-98.0); MONOCYTES # (AUTO) 0.4 K/uL (0.0-1.0); MONOCYTES % (AUTO) 1.8 % (1.7-9.3); NEUTROPHILS # (AUTO) 19.2 K/uL (1.8-7.7); PLATELET COUNT (AUTO) 275 K/uL (130-430); RED BLOOD CELL COUNT(AUTO) 2.62 MIL/uL (4.2-6.2); RED CELL DISTRIBUTION WIDTH 15.4 % (9.0-15.0); WHITE BLOOD COUNT (AUTO) 20.3 K/uL (4.8-10.8)
[2016-08-21 06:42] LABS: ANION GAP 7 (5-15); CALCIUM 7.9 mg/dL (8.4-11.0); CHLORIDE 101 mmol/L (98-107); CREATININE 1.17 mg/dL (0.55-1.30); GLUCOSE 253 mg/dL (70-99); POTASSIUM 3.5 mmol/L (3.5-5.1); SODIUM SERUM 141 mmol/L (136-145); UREA NITROGEN, BLOOD 48 mg/dL (8-21)
--- NOTE | 2016-08-21 06:54 | NUR ---
lock technician at bedside taking chest x-ray.
--- NOTE | 2016-08-21 07:32 | NUR ---
REPORT: Report given to DIANA Lindo.
--- NOTE | 2016-08-21 07:33 | NUR ---
PT TACHYCARDIC @136, TACHYPNIC AT 33MIN, AFEBRILE. CN AWARE, STATES "PT HAS BEEN REMAINED AT THAT STATE" BLOOD TESTER DR KYLER MARTINEZ.
--- NOTE | 2016-08-21 08:02 | NUR ---
AM ASSESSMENT PT RESTING WITH EYES CLOSED, NOTED OPENS EYES TO VERBAL STIMULI. INTUBATED WITH VENT SETTINGS ASSESSED. ET TUBE RESTING ON RIGHT SIDE OF MOUTH. OGT FEEDING DIABETISOURCE AT 40ML/HR WITH 5ML RESIDUAL NOTED. IV LEFT UPPER ARM 20G FLUSHING WELL AND RUNNING D5.45NS AT 30ML/HR. NOTED IV RIGHT WRIST 20G FLUSHING WELL AND SALINE LOCKED. BILATERAL WRIST RESTRAINTS, NOTED BRUISE TO LEFT WRIST AREA. AMES CATHETER PRESENT DRAINING CLEAR YELLOW URINE TO GRAVITY. ALL NEEDS BEING MET. PT QUIET AND CALM. RESTRAINTS DC'D
[2016-08-21 08:13] LABS: BLOOD GAS PH 7.596 (7.350-7.450)
[2016-08-21 08:14] LABS: ABG TOTAL HEMOGLOBIN 8.3 G/dL (12.0-18.0); BLOOD GAS BASE EXCESS 8.7 mmol/L (-3.0-3.0); BLOOD GAS COHb% 0.2 % (0.5-1.5); BLOOD GAS HHB 5.6 % (0.0-6.0)
--- NOTE | 2016-08-21 08:18 | NUR ---
RT NOTES Per Dr Healy, titrate FIO2 to 40%. No immediate adverse reactions noted. Will monitor pt.
[2016-08-21] MEDS: MORPHINE 2 MG/ML INJ. SYRINGE IVP PRN (08:21)
--- NOTE | 2016-08-21 08:22 | NUR ---
MORPHINE 2MG IV GIVEN ORDERED FOR TACHYPNEA AND TACHYCARDIA
[2016-08-21] MEDS: ENOXAPARIN SODIUM 30 MG/0.3 ML SYRINGE SUBCUT SCH (09:12)
[2016-08-21] MEDS: POTASSIUM CHLORIDE 20 MEQ TAB.PRT.SR PO SCH ×2 (09:12→22:03)
[2016-08-21] MEDS: PANTOPRAZOLE SODIUM 40 MG/VIAL (PROTONIX) IVP SCH (09:12)
[2016-08-21] MEDS: ASPIRIN 81 MG TAB.CHEW PO SCH (09:13)
[2016-08-21] MEDS: CARVEDILOL 3.125 MG TABLET (COREG) PO SCH ×2 (09:13→22:03)
[2016-08-21] MEDS: FUROSEMIDE 20 MG/2 ML VIAL IVP SCH ×2 (09:14→22:03)
[2016-08-21] MEDS: HYDROCORTISONE SOD SUCC 100 MG/2 ML VIAL IVP SCH (09:15)
[2016-08-21] MEDS: CEFEPIME 1 GM in D5W 50 ML IV SCH ×2 (09:17→22:02)
--- NOTE | 2016-08-21 09:24 | NUR ---
PT CONTINUES TO BE TACHYCARDIC AND TACHYPNIC. DR CHÁVEZ PAGED AGAIN. MEDICATED WITH ATIVAN ORDERED.
--- NOTE | 2016-08-21 10:03 | NUR ---
PT ST @102, RR-DECREASE TO 24/MIN. WILL CONT TO MONITOR.
--- NOTE | 2016-08-21 15:21 | NUR ---
PT HAD SMALL BM, ALEJANDRO CARE AND F/C CATH CARE GIVEN ALONG WITH COMPLETE LINEN CHANGE. PT TOLERATED FAIRLY.
--- NOTE | 2016-08-21 17:23 | NUR ---
1 UNIT PRB UNIT# [id number] STARTED, WITH 2 RN VERIFICATION. PT AFEBRILE, ST @123.
--- NOTE | 2016-08-21 20:00 | NUR ---
ASSESSMENT Pt with eyes open does not follow instruction. Pt with trach to vent, tolerating current vent settings. OGT present, placement checked by irrigating tube with air. Continuous feeding in progress. Logan in use. 2 IV sites present, 20ga left forearm and 22ga right forearm, both without redness or swelling.
[2016-08-22] VITALS (36 sets, daily range): BP systolic 90–177; BP diastolic 36–90; PULSE 91–131; RESP 12–39; TEMP 97.2–99.4; O2SAT 90–100
--- NOTE | 2016-08-22 | NUR ---
FEEDING Feeding held for Am EGD w/ PEG placement.
[2016-08-22] MEDS: D5/0.45 NS 1,000 ML IV SCH (00:22)
[2016-08-22] MEDS: ALBUTEROL SULFATE 0.083% 2.5 MG/3 ML VIAL.NEB INH SCH ×4 (01:22→20:47)
[2016-08-22] MEDS: IPRATROPIUM BROM 0.5 MG/2.5 ML VIAL.NEB (ATROVENT) INH SCH ×4 (01:23→20:48)
[2016-08-22 06:27] LABS: HEMATOCRIT 31.6 % (36-48); HEMOGLOBIN 10.4 g/dL (12.0-16.0); MEAN CORPUSCULAR HEMOGLOBIN 29 pg (27-31); MEAN CORPUSCULAR HGB CONC 33 % (32-36); MEAN CORPUSCULAR VOLUME 89 fL (79.0-98.0); PLATELET COUNT (AUTO) 255 K/uL (130-430); RED BLOOD CELL COUNT(AUTO) 3.57 MIL/uL (4.2-6.2); RED CELL DISTRIBUTION WIDTH 15.2 % (9.0-15.0); WHITE BLOOD COUNT (AUTO) 21.5 K/uL (4.8-10.8)
[2016-08-22 06:34] LABS: ANION GAP 7 (5-15); CALCIUM 8.5 mg/dL (8.4-11.0); CHLORIDE 103 mmol/L (98-107); CREATININE 1.27 mg/dL (0.55-1.30); GLUCOSE 216 mg/dL (70-99); POTASSIUM 3.7 mmol/L (3.5-5.1); SODIUM SERUM 143 mmol/L (136-145); UREA NITROGEN, BLOOD 53 mg/dL (8-21)
[2016-08-22 06:52] LABS: PROTHROMBIN TIME 11.2 SECS (9.5-12.5)
--- NOTE | 2016-08-22 07:50 | NUR ---
AM Shift Assessment Received pt in bed awake, confused, unable to verbalize needs, unable to follow commands. Respirations even and unlabored with trach to vent AC12, TV 400, FiO2 40%, PEEP 5. Skin warm and dry. IVF LFA 20G intact, patent with D5 1/2 NS 30 ml/hr. IVSL RFA 22G intact, patent. Perineal area denuded, bilateral upper extremity bruises noted. Logan intact draining yellow urine. Heart sounds regular, ST on monitor, HR 115-120. Adventitious breath sounds. Bowel sounds present x4 quads. Abdomen soft and nontender. OGT in place, auscultated for placement, aspirated 0 ml residual. Tube feeding off d/t possible PEG placement today. Bed locked in lowest position. Call light in reach. SCDs in place bilaterally. Will continue to monitor.
--- NOTE | 2016-08-22 08:00 | NUR ---
Dr. Preston in to see pt. Dr. Preston aware of pt's WBC and HR. No new orders made. Will continue with plan of care.
--- NOTE | 2016-08-22 08:00 | NUR ---
Oral Care/Repositioning Administered oral care and oral suctioning. Repositioned pt.
[2016-08-22 08:27] LABS: ATYPICAL LYMPHOCYTES % 0 % (0-0); BAND % (MANUAL) 0 % (0-6); BASOPHILS % (MANUAL) 0 % (0-2); EOSINOPHILS % (MANUAL) 0 % (0-7); LYMPHOCYTES % (MANUAL) 4 % (20-46); MONOCYTES % (MANUAL) 3 % (0-11)
[2016-08-22] MEDS: HYDROCORTISONE SOD SUCC 100 MG/2 ML VIAL IVP SCH (08:36)
[2016-08-22] MEDS: PANTOPRAZOLE SODIUM 40 MG/VIAL (PROTONIX) IVP SCH (08:36)
[2016-08-22] MEDS: FUROSEMIDE 20 MG/2 ML VIAL IVP SCH (08:38)
[2016-08-22] MEDS: CEFEPIME 1 GM in D5W 50 ML IV SCH ×2 (08:38→20:48)
[2016-08-22] MEDS: CARVEDILOL 3.125 MG TABLET (COREG) PO SCH ×2 (09:00→20:49)
[2016-08-22] MEDS: POTASSIUM CHLORIDE 20 MEQ TAB.PRT.SR PO SCH ×2 (09:00→20:48)
--- NOTE | 2016-08-22 09:00 | NUR ---
Dr. Castillo in to see pt. Will continue with plan of care.
--- NOTE | 2016-08-22 09:15 | NUR ---
Need for Consent Called GI lab to notify Dr. Gomez to call pt's granddaughter to explain PEG procedure. Per lab hr receptionist, she will "relay message to Dr. Gomez and have him call from ICU because he is performing procedures currently." Will follow up.
--- NOTE | 2016-08-22 10:00 | NUR ---
CHG/Repositioning/Skin Care Pt had loose brown BM, administered she/skin care, administered CHG bath. Applied z-guard to she area, repositioned pt. Bed locked in lowest position. Will continue to monitor.
--- NOTE | 2016-08-22 10:46 | NUR ---
Consent for PEG placement Dr. Gomez on unit called Di Coy, pt's granddaughter, regarding procedure and risks and benefits. RN obtain telephone consent witnessed and verified with Betsey ORTIZ. Consent signed and placed in chart.
--- NOTE | 2016-08-22 11:00 | NUR ---
PEG Procedure at Bedside Procedure being done at bedside by Dr. Gomez. Will continue to monitor.
[2016-08-22] MEDS: MIDAZOLAM HCL 5 MG/5 ML VIAL ONE ×2 (11:21→11:26)
[2016-08-22] MEDS: MEPERIDINE HCL/PF 100 MG/ML AMP ONE ×2 (11:21→11:26)
--- NOTE | 2016-08-22 11:40 | NUR ---
PEG Procedure Complete Pt noted with decreased BP, SBP in 100s. Per Dr. Gomez, "Hold tube feeding until 1800." Pt's temp 99, will continue to monitor.
--- NOTE | 2016-08-22 12:00 | NUR ---
Oral Care/Repositioning/Patient Update Administered oral care, and oral and endotracheal suctioning. Repositioned pt, no BM noted. No bleeding at GT site noted. Tracheostomy periwound noted with dried blood plus small amount of dark red secretion. Cleaned around site carefully with gauze and NS. Will continue to monitor.
--- NOTE | 2016-08-22 13:15 | NUR ---
Dr. Janessa Riddle in unit, made aware of concern for tracheostomy secretions. Dr. Riddle visualized pt's trach at bedside with RN present. Dr. Riddle states, "Just clean it and change the packing. It's fine." Dr. Riddle removed some packing. Will continue with plan of care.
--- NOTE | 2016-08-22 13:30 | NUR ---
Patient Update Pt noted with decreased SBP, restless. No bleeding noted on GT site, no perfuse bleeding noted on tracheostomy, pulses present on extremities. Notified Dr. Live, network security consultant for Dr. Castillo, regarding low SBP in 80s post procedure. Rechecked BP, SBP in 90s. Dr. Live states, "Just keep an eye out for the blood pressure right now since it is trending upward and pulses are palpable. Notify me if it drops again." No new orders made. Will continue to monitor.
--- NOTE | 2016-08-22 17:25 | NUR ---
Patient Update Patient seen with grimacing and more restless. Paged Dr. Preston for pain medication orders. New orders made, noted and carried out. Will continue with plan of care.
[2016-08-22] MEDS: MORPHINE 2 MG/ML INJ. SYRINGE IVP PRN (18:18)
--- NOTE | 2016-08-22 18:40 | NUR ---
Morphine/Trach Care/GT Feeding Administered morphine 2mg IVP for pain control, pt less restless. Replaced packed gauze in pt's trach area. Cleansed around site with NS and gauze. No active bleeding noted. Started pt on GT feeding at 1830 with diabetesource 20 ml/hr. Will continue to monitor.
--- NOTE | 2016-08-22 19:20 | NUR ---
Endorsement Endorsed plan of care to Myriam ORTIZ via SBAR tool at bedside.
--- NOTE | 2016-08-22 19:30 | NUR ---
PM ASSESSMENT: Patient awake but does not follow commands, non-verbal. Breathing even and unlabored. Sinus tach on the monitor. Afebrile. Patient is on trach to vent with vent settings AC 12, TV 400, FiO2 40%, Peep 5. Bilateral upper arms noted with bruises. PEG tube patent and intact. No residual noted. No signs of redness or swelling on the PEG tube site. Tube feeding Diabetisource AC running at 20ml/hr. IV access on the right forearm G 22 and left forearm G20, both patent and intact. No signs of redness or swelling on the IV sites. Logan cath draining yellow urine. HOB elevated at 30 degrees with 2 side rails up and bed in lowest level. Bed brakes locked. Call light within reach. Will continue to monitor.
--- NOTE | 2016-08-22 21:50 | NUR ---
PT UPDATE: Patient's eyes closed seemed to be asleep. No acute distress or SOB noted at this time. Vents settings tolerating well. Will continue to monitor.
--- NOTE | 2016-08-22 23:45 | NUR ---
CHG: CHG bath done. All linens changed. Had one loose moderate amount of BM. Barrier cream applied to perineal area.
[2016-08-23] VITALS (10 sets, daily range): BP systolic 85–126; BP diastolic 36–79; PULSE 53–124; RESP 19–33; TEMP 97.9–98; O2SAT 92–99
--- NOTE | 2016-08-23 01:46 | NUR ---
PT UPDATE: Patient sleeping comfortably at this time. No acute distress or SOB noted. Tube feeding tolerating well. Will continue to monitor.
[2016-08-23] MEDS: IPRATROPIUM BROM 0.5 MG/2.5 ML VIAL.NEB (ATROVENT) INH SCH (01:50)
[2016-08-23] MEDS: ALBUTEROL SULFATE 0.083% 2.5 MG/3 ML VIAL.NEB INH SCH (01:50)
--- NOTE | 2016-08-23 03:02 | NUR ---
PT UPDATE: Patient in no acute distress at this time. Repositioned for comfort. Oral care done q 4hrs. Safety and fall precautions in place. Maintained HOB elevated at 30 degrees. Will continue to monitor.
[2016-08-23] MEDS: MORPHINE 2 MG/ML INJ. SYRINGE IVP PRN (04:42)
--- NOTE | 2016-08-23 06:00 | NUR ---
TUBE FEEDING: Tube feeding rate increased to 30ml/hr at 0000 and then increased again to 40ml/hr at this time. Will monitor feeding tolerance.
--- NOTE | 2016-08-23 06:28 | NUR ---
HEART RATE: Patient's heart rate noted to be going up to the 125s and staying at that number. No acute distress or SOB at this time. PRN med for increased heart rate will be given and will continue to monitor.
[2016-08-23] MEDS: METOPROLOL TARTRATE 5 MG/5 ML VIAL IVP PRN (06:34)
[2016-08-23 06:56] LABS: BASOPHILS % (AUTO) 0.1 % (0.0-2.0); HEMATOCRIT 29.2 % (36-48); HEMOGLOBIN 9.5 g/dL (12.0-16.0); LYMPHOCYTES # (AUTO) 0.4 K/uL (1.0-5.5); LYMPHOCYTES % (AUTO) 2.3 % (20.5-51.5); MEAN CORPUSCULAR HEMOGLOBIN 29 pg (27-31); MEAN CORPUSCULAR HGB CONC 33 % (32-36); MEAN CORPUSCULAR VOLUME 88 fL (79.0-98.0); MONOCYTES # (AUTO) 0.8 K/uL (0.0-1.0); MONOCYTES % (AUTO) 4.3 % (1.7-9.3); NEUTROPHILS # (AUTO) 18.4 K/uL (1.8-7.7); NEUTROPHILS % (AUTO) 93.3 % (40.0-70.0); PLATELET COUNT (AUTO) 224 K/uL (130-430); RED CELL DISTRIBUTION WIDTH 15.7 % (9.0-15.0); WHITE BLOOD COUNT (AUTO) 19.6 K/uL (4.8-10.8)
--- NOTE | 2016-08-23 07:00 | NUR ---
PT UPDATE: Patient's heart rate suddenly dropped to the low 50s and blood pressure not readable. After a few minutes, patient converted to heart block. Patient's skin color became very pale. Atropine IVP was given. Patient's condition continues to deteriorate. Another atropine given and as per MD order IVF increased to 200ml/hr. Patient's vital signs continues to go down. Pulse checked and cannot obtain. Code blue initiated.
[2016-08-23 07:06] LABS: ANION GAP 10 (5-15); CALCIUM 8.3 mg/dL (8.4-11.0); CHLORIDE 101 mmol/L (98-107); CREATININE 1.56 mg/dL (0.55-1.30); GLUCOSE 274 mg/dL (70-99); POTASSIUM 4.3 mmol/L (3.5-5.1); SODIUM SERUM 141 mmol/L (136-145); UREA NITROGEN, BLOOD 64 mg/dL (8-21)
--- NOTE | 2016-08-23 07:20 | NUR ---
AM Shift Assessment Pt was seen unresponsive with unpalpable pulse. Myriam RN at bedside. Started code and CPR. Code details documented on Code Blue Record and Resuscitation Documentation Tool.
--- NOTE | 2016-08-23 07:20 | NUR ---
RT NOTE CODE BLUE CALLED, RT'S IVONNE RADFORD AND SHAWNEE PARTICIPATED IN CODE PROVIDING CHEST COMPRESSIONS AND BAG-MASK VENTILATION TO TRACH. PT HAS ROSC. CODE ENDED AND PT RETURNED TO VENT AT PREVIOUS SETTINGS. WILL CONT TO MONITOR.
--- NOTE | 2016-08-23 07:33 | NUR ---
Patient Update Patient achieved ROSC, HR 70 with palpable pulse and doppler. Pt started on dopamine drip 5 mcg/kg/min. Administered NS fluid bolus.
[2016-08-23] MEDS ORDERED: DOPamine PREMIX 250 ML IV ONE (07:44)
--- NOTE | 2016-08-23 07:48 | NUR ---
RT NOTE CODE BLUE CALLED. RT'S IVONNE RADFORD AND SHAWNEE PARTICIPATED IN CODE PROVIDING CHEST COMPRESSIONS, BAG -MASK VENTILATION TO TRACH TUBE AND ENDO TRACHIAL SUCTIONING. PT HAS ROSC AND IS PLACED ON VENT AT PREVIOUS SETTINGS. FAMILY WANTS COMFORT MEASURES FOR THE PT. RT MALINA WAS INFORMED THAT THE PT PASSED AT [phone].
--- NOTE | 2016-08-23 07:48 | NUR ---
Patient Update Pt becoming more unresponsive. No pulse palpated. Started second code. Code details documented on Code Blue Record and Resuscitation Documentation Tool. Dr. Singleton at bedside leading code.
[2016-08-23] MEDS: HYDROCORTISONE SOD SUCC 100 MG/2 ML VIAL IVP SCH (08:00)
[2016-08-23] MEDS ORDERED: SODIUM BICARBONATE 8.4% JECT 50 MEQ/50 ML SYRINGE ONE (08:00)
[2016-08-23] MEDS: CEFEPIME 1 GM in D5W 50 ML IV SCH (08:00)
[2016-08-23] MEDS ORDERED: ATROPINE SULFATE 1 MG/10 ML SYRINGE IVP ONE (08:00)
[2016-08-23] MEDS: CARVEDILOL 3.125 MG TABLET (COREG) PO SCH (08:00)
[2016-08-23] MEDS: POTASSIUM CHLORIDE 20 MEQ TAB.PRT.SR PO SCH (08:00)
[2016-08-23] MEDS ORDERED: EPINEPHrine JECT 1 MG/10 ML SYR ONE ×2 (08:00→08:39)
[2016-08-23] MEDS: PANTOPRAZOLE SODIUM 40 MG/VIAL (PROTONIX) IVP SCH (08:00)
--- NOTE | 2016-08-23 08:06 | NUR ---
Patient Update Pt found with pulse at 38 via doppler and palpation. Per Dr. Singleton, pt is to "start on epinephrine drip and atropine drip." Will continue with plan of care.
--- NOTE | 2016-08-23 08:10 | NUR ---
Patient Update Patient started on epinephrine drip per Dr. Singleton's orders. Atropine drip not initiated, Dr. Singleton aware and states to give atropine via IV push. Atropine given via IV push. Will continue to monitor.
[2016-08-23] MEDS ORDERED: EPINEPHrine JECT 2 MG in NS 230 ML IV PRN (08:15)
--- NOTE | 2016-08-23 08:45 | NUR ---
Patient Update/Modified Code Pt code status changed to modified code with ACLS drugs only, signed and placed in chart. Pt noted with heart block, started modified code. Code details documented on Code Blue Record and Resuscitation Documentation Tool.
--- NOTE | 2016-08-23 08:57 | NUR ---
Patient Update Pronouncement of by Dr. Singleton. Modified code interventions ineffective. Family at bedside with pt.
[2016-08-23] MEDS ORDERED: ASPIRIN 81 MG TAB.CHEW PO SCH (09:00)
[2016-08-23] MEDS ORDERED: FUROSEMIDE 20 MG/2 ML VIAL IVP SCH (09:00)
[2016-08-23] MEDS ORDERED: ENOXAPARIN SODIUM 30 MG/0.3 ML SYRINGE SUBCUT SCH (09:00)
--- NOTE | 2016-08-23 09:19 | NUR ---
Called [facility]. Spoke with Konstantin. Closed case due to old age. .
--- NOTE | 2016-08-23 09:25 | NUR ---
Called [facility]. Spoke with Alejandro Zelalem. Updated on patients history. Patient determined not to be a [facility] case.
--- NOTE | 2016-08-23 14:19 | NUR ---
Nutrition Note Patient this morning before RD rounds.
== END 2016-08-23 08:58 | disposition expired | DRG 4 ==
LOC: SED 10:03 → SIC 13:03
PROVIDERS: ADMIT Internal Medicine Hospice and Palliative Medicine; ATTEND Internal Medicine Hospice and Palliative Medicine
PROC: 5A1955Z Respiratory Ventilation, Greater than 96 Consecutive Hours (ICD-10-PCS; principal; 2016-08-12)
PROC: 0BH17EZ Insertion of Endotracheal Airway into Trachea, Via Natural or Artificial Opening (ICD-10-PCS; 2016-08-12)
PROC: 0B110F4 Bypass Trachea to Cutaneous with Tracheostomy Device, Open Approach (ICD-10-PCS; 2016-08-19)
PROC: 30233N1 Transfusion of Nonautologous Red Blood Cells into Peripheral Vein, Percutaneous Approach (ICD-10-PCS; 2016-08-21)
PROC: 0DH63UZ Insertion of Feeding Device into Stomach, Percutaneous Approach (ICD-10-PCS; 2016-08-22)
DX: A41.9 Sepsis, unspecified organism (principal); R65.21 Severe sepsis with septic shock; I21.3 ST elevation (STEMI) myocardial infarction of unspecified site; I50.43 Acute on chronic combined systolic (congestive) and diastolic (congestive) heart failure; J69.0 Pneumonitis due to inhalation of food and vomit; J96.01 Acute respiratory failure with hypoxia; I42.9 Cardiomyopathy, unspecified; N18.4 Chronic kidney disease, stage 4 (severe); N17.9 Acute kidney failure, unspecified; I13.0 Hypertensive heart and chronic kidney disease with heart failure and stage 1 through stage 4 chronic kidney disease, or unspecified chronic kidney disease; Z99.11 Dependence on respirator [ventilator] status; J44.9 Chronic obstructive pulmonary disease, unspecified; Z96.649 Presence of unspecified artificial hip joint; D63.8 Anemia in other chronic diseases classified elsewhere; F02.80 Dementia in other diseases classified elsewhere, unspecified severity, without behavioral disturbance, psychotic disturbance, mood disturbance, and anxiety; G30.9 Alzheimer's disease, unspecified; J10.1 Influenza due to other identified influenza virus with other respiratory manifestations; I46.9 Cardiac arrest, cause unspecified; Z99.3 Dependence on wheelchair; Z79.82 Long term (current) use of aspirin; Z51.5 Encounter for palliative care
CPT/HCPCS: 36415; 36600; 43246; 71010; 80048; 80053; 80061; 81000-TC; 82803-TC; 82962; 83605; 83735-TC; 83880; 84443-TC; 84484; 85007; 85025; 85027; 85610-TC; 85730-TC; 86710; 86886; 86900; 86901; 86920; 87040-TC; 87070-TC; 87081; 87086; 87205-TC; 87230-TC; 92950; 93005; 93306; 94002; 94003; 94640; 96365; 96367; 99285; C9113; G9035; J0171; J0330; J0456; J0461; J0692; J0696; J1265; J1630; J1650; J1720; J1940; J2001; J2060; J2175; J2250; J2270; J2543; J3480; J3490; J7030; J7040; J7042; J7050; J7060; P9021